=== PATIENT | male | born 1950 | race Caucasian/White ===

== ENCOUNTER 2018-03-06 10:40 | Emergency (ER) | payer MEDICARE, OTHER ==
[2018-03-06 11:12] VITALS: BP 118/65
[2018-03-06] MEDS: Albuterol/Ipratropium 3.0-0.5 MG/3 ML Neb Soln NEB ONE (11:14)
[2018-03-06 11:50] LABS: CHLORIDE,CL 92 mmol/L (98-115); SODIUM,NA 131 mmol/L (136-145)
--- NOTE | 2018-03-06 12:20 | EDM.PDOC ---
ED HPI GENERAL MEDICAL PROBLEM - General Chief Complaint: Respiratory Problem Stated Complaint: SHORTNESS OF BREATH Time Seen by Provider: 03/06/18 10:40 Source of Information: Reports: Patient, RN History Limitations: Reports: No Limitations - History of Present Illness INITIAL COMMENTS - FREE TEXT/NARRATIVE: 67-year-old patient will establish to the [facility] and clinic presents emergency room today with increased shortness of breath and weakness. He has a advanced COPD and history of alcoholic cirrhosis and anemia. He reports feeling increased weakness over the last 2 days. He has not done any nebulizer treatments. He reports that his air conditioner does not work well and he feels that this affects his breathing. He denies any nausea or vomiting or diarrhea. He denies any abdominal complaints. He feels his symptoms have gotten worse when he was out mowing the yard on the riding lawnmower 2 days ago. Onset: Gradual Onset Date: 03/03/18 Duration: Chronic, Getting Worse Location: Reports: Chest Quality: Reports: Same as Previous Episode Severity: Moderate Improves with: Reports: Rest Worsens with: Reports: Other (Outside in the heat and humidity), Movement Associated Symptoms: Reports: Shortness of Breath, Weakness. 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: Other Medication(s) - Related Data Allergies Allergy/AdvReac Type Severity Reaction Status Date / Time No Known Drug Allergies Allergy Cannot Verified 03/06/18 11:16 Remember Home Meds: Home Meds Pantoprazole Sodium 40 mg PO ACBREAKFAST 02/25/15 [History] Albuterol [Proair HFA] 1 - 2 puff INH Q4H PRN 02/26/15 [History] Fluticasone/Salmeterol [Advair Diskus 250-50] 1 puff INH BID 07/20/16 [History] Albuterol/Ipratropium [DuoNeb 3.0-0.5 MG/3 ML] 3 ml NEB QID PRN 09/05/16 [ History] Furosemide [Lasix] 60 mg PO DAILY 09/05/16 [History] Aspirin/Calcium Carbonate/Mag [Aspirin Buffered 325 mg Tab] 650 mg PO ASDIRECTED PRN 11/07/16 [History] Hydrocortisone [Proctozone-HC 2.5% Crm] 1 applic TOP ASDIRECTED PRN 11/08/16 [ History] Hydroxyurea [Hydrea] 1 tab PO BID 11/05/17 [History] Past Medical History HEENT History: Reports: Cataract, Impaired Vision Cardiovascular History: Reports: Hypertension, SOB on Exertion Respiratory History: Reports: COPD, SOB, Other (See Below) Other Respiratory History: emphysema Gastrointestinal History: Reports: Cirrhosis, Other (See Below) Other Gastrointestinal History: ascites, stomach ulcer- had a endoscopy in 2014 and there was no evidence of bleeding at that time Musculoskeletal History: Reports: Arthritis Neurological History: Reports: Headaches, Chronic Other Neuro History: etoh use Psychiatric History: Reports: Addiction, Other (See Below) Other Psychiatric History: alcohol and nicotine Endocrine/Metabolic History: Reports: Obesity/BMI 30+ Hematologic History: Reports: Anemia, Other (See Below) Other Hematologic History: thrombocytopenia, take 6 tabs of 325 mg aspirin daily Dermatologic History: Reports: Other (See Below) Other Dermatologic History: multiple scratched open area on chest, back and wesley arms - Infectious Disease History Infectious Disease History: Reports: Chicken Pox, Measles, Other (See Below) Other Infectious Disease History: non infectious hepatitis - Past Surgical History HEENT Surgical History: Reports: Cataract Surgery, Naso-Sinus Surgery GI Surgical History: Reports: Hernia, Abdominal, Hernia, Inguinal, Hernia Repair /Other Endocrine Surgical History: Reports: None Musculoskeletal Surgical History: Reports: Other (See Below) Social & Family History - Family History Family Medical History: Noncontributory Cardiac: Reports: Heart Failure - Caffeine Use Caffeine Use: Reports: Soda Other Caffeine Use: coke and powerade - Living Situation & Occupation Living situation: Reports: Single Occupation: Retired ED ROS GENERAL - Review of Systems Review Of Systems: See Below Constitutional: Reports: Fatigue. Denies: Fever, Chills HEENT: Reports: No Symptoms Respiratory: Reports: Shortness of Breath. Denies: Sputum, Hemoptysis Cardiovascular: Reports: Dyspnea on Exertion. Denies: Chest Pain, Orthopnea Endocrine: Reports: No Symptoms GI/Abdominal: Denies: Abdominal Pain, Vomiting : Reports: No Symptoms Musculoskeletal: Reports: No Symptoms Skin: Denies: Jaundice, Change in Color Neurological: Reports: Weakness Psychiatric: Reports: Depression Hematologic/Lymphatic: Reports: Anemia Immunologic: Reports: No Symptoms ED EXAM, GENERAL - Physical Exam Exam: See Below Exam Limited By: No Limitations General Appearance: Alert, WD/WN, No Apparent Distress Eye Exam: Bilateral Eye: EOMI, PERRL Ears: Hearing Grossly Normal Nose: Normal Inspection Throat/Mouth: Normal Oropharynx, Normal Voice, No Airway Compromise Head: Atraumatic, Normocephalic Neck: Normal Inspection, Supple Respiratory/Chest: No Respiratory Distress, Decreased Breath Sounds, Rhonchi, Wheezing. No: Accessory Muscle Use, Retractions Cardiovascular: Regular Rate, Rhythm GI/Abdominal: Non-Tender, Distended, Hepatomegaly Back Exam: Normal Inspection Extremities: Normal Inspection Neurological: Alert, Oriented, No Motor/Sensory Deficits Psychiatric: Normal Affect, Normal Mood Skin Exam: Warm, Dry, Intact, Normal Color, No Rash. No: Jaundice Lymphatic: No Adenopathy Course - Vital Signs Last Recorded V/S: Last Vital Signs Temp 98.9 F 03/06/18 11:05 Pulse 84 03/06/18 11:11 Resp 24 H 03/06/18 11:05 BP 118/65 03/06/18 11:05 Pulse Ox 93 L 03/06/18 11:11 - Orders/Labs/Meds Orders: Active Orders 24 hr Category Date Time Status RT Aerosol Therapy [RC] ASDIRECTED Care 03/06/18 11:11 Active CXR [Chest 2V] [CR] Stat Exams 03/06/18 11:10 Taken Labs: Laboratory Tests 03/06/18 03/06/18 Range/Units 10:20 10:20 WBC 7.4 (5.0-10.0) 10^3/uL RBC 2.27 L (4.50-6.00) 10^6/uL Hgb 6.6 L* (13.0-17.0) g/dL Hct 21.1 L (40.0-52.0) % MCV 92.9 H (82.0-92.0) fL MCH 29.1 (27.0-31.0) pg MCHC 31.3 L (32.0-36.0) g/dL RDW 21.4 H (11.5-14.5) % Plt Count 378 H D (150-300) 10^3/uL MPV 7.9 (7.4-10.4) fL Add Manual Diff Yes Neutrophils % (Manual) 90 H (50-70) % Lymphocytes % (Manual) 5 L (20-40) % Monocytes % (Manual) 5 (2-8) % Absolute Neutrophils 6.6600 Lymphocytes # (Manual) 0.3700 Monocytes # (Manual) 0.3700 Nucleated RBCs Patient Transport Orderly Differential Comment See note Platelet Estimate Adequate Giant Platelets Rare Poikilocytosis 1+ slight Anisocytosis 2+ moderate Macrocytosis 1+ slight Tear Drop Cells 1+ slight Elliptocytes 1+ slight Schistocytes Occasional Sodium 131 L (136-145) mmol/L Potassium 3.1 L (3.3-5.3) mmol/L Chloride 92 L (98-115) mmol/L Carbon Dioxide 31.0 (21.0-32.0) mmol/L BUN 12 (6-25) mg/dL Creatinine 1.00 (0.51-1.17) mg/dL Est Cr Clr Drug Dosing 69.72 mL/min Estimated GFR (MDRD) > 60 mL/min Glucose 112 H (70-110) mg/dL Calcium 8.0 L (8.7-10.3) mg/dL Meds: Medications Discontinued Medications Generic Name Dose Route Start Last Admin Trade Name Freq PRN Reason Stop Dose Admin Albuterol/Ipratropium 3 ml 03/06/18 11:10 03/06/18 11:14 Duoneb 3.0-0.5 Mg/3 Ml NEB 03/06/18 11:11 3 ml ONETIME ONE Administration Departure - Departure Time of Disposition: 12:40 Disposition: Home, Self-Care 01 Condition: Fair Clinical Impression: Acute exacerbation of chronic obstructive pulmonary disease (COPD), Alcoholic cirrhosis of liver with ascites, Anemia due to alcoholism - Discharge Information Instructions: Alcoholic Liver Disease, [id number], Chronic Obstructive Pulmonary Disease, Hemolytic Anemia Referrals: Fadia Rajan MD [Primary Care Provider] - Forms: ED Department Discharge - My Orders Last 24 Hours: My Active Orders 03/06/18 11:10 CXR [Chest 2V] [CR] Stat 03/06/18 11:11 RT Aerosol Therapy [RC] ASDIRECTED - Assessment/Plan Last 24 Hours: My Active Orders 03/06/18 11:10 CXR [Chest 2V] [CR] Stat 03/06/18 11:11 RT Aerosol Therapy [RC] ASDIRECTED Assessment:: Acute exacerbation of chronic COPD Alcoholic cirrhosis with history of ascites Anemia due to alcoholism Plan: 1. Continue with nebulizer treatments at home. 2. We'll plan on transfusing 1 unit of packed red blood cells for chronic anemia due to alcoholic liver cirrhosis. 3. Follow-up with Dr. Fadia Henson in 1 week. 4. Stay out of the heat and avoid any vigorous activities.
== END 2018-03-06 13:14 | disposition home or self-care (01) ==
LOC: KA.ED 10:40
DX: J44.1 Chronic obstructive pulmonary disease with (acute) exacerbation (principal); K70.31 Alcoholic cirrhosis of liver with ascites; F10.20 Alcohol dependence, uncomplicated; I10 Essential (primary) hypertension; D64.9 Anemia, unspecified; Z79.82 Long term (current) use of aspirin; Z79.899 Other long term (current) drug therapy
CPT/HCPCS: 36415; 71046; 80048; 85025; 99284; 99285

== ENCOUNTER 2018-03-19 17:01 | Emergency (ER) | payer MEDICARE, OTHER ==
[2018-03-19 17:13] VITALS: BP 101/36
--- NOTE | 2018-03-19 17:55 | EDM.PDOC ---
ED HPI GENERAL MEDICAL PROBLEM - General Chief Complaint: Respiratory Problem Stated Complaint: SHORT OF BREATH Time Seen by Provider: 03/19/18 17:06 Source of Information: Reports: Patient History Limitations: Reports: No Limitations - History of Present Illness INITIAL COMMENTS - FREE TEXT/NARRATIVE: Patient presents with dyspnea for the past 5 days along with worse cough than usual. He has been on home oxygen for the past 6 days but didn't think he needed to do his nebulizers now that he is on oxygen. He is supposed to use DuoNebs 2-4x/day. He was in the ER 13 days ago with dyspnea and anemia; and was given a transfusion while in ER. He lives alone and has been placed in NH in the past but then checks himself out. He is still smoking but doesn't light up with oxygen on he says. He hasn't been eating much the last few days but is drinking quite a bit of water and coca-cola. - Related Data Allergies Allergy/AdvReac Type Severity Reaction Status Date / Time No Known Drug Allergies Allergy Cannot Verified 03/19/18 17:13 Remember Home Meds: Home Meds Pantoprazole Sodium 40 mg PO ACBREAKFAST 02/25/15 [History] Albuterol [Proair HFA] 1 - 2 puff INH Q4H PRN 02/26/15 [History] Fluticasone/Salmeterol [Advair Diskus 250-50] 1 puff INH BID 07/20/16 [History] Albuterol/Ipratropium [DuoNeb 3.0-0.5 MG/3 ML] 3 ml NEB QID PRN 09/05/16 [ History] Furosemide [Lasix] 60 mg PO DAILY 09/05/16 [History] Aspirin/Calcium Carbonate/Mag [Aspirin Buffered 325 mg Tab] 650 mg PO ASDIRECTED PRN 11/07/16 [History] Hydrocortisone [Proctozone-HC 2.5% Crm] 1 applic TOP ASDIRECTED PRN 11/08/16 [ History] Hydroxyurea [Hydrea] 1 tab PO BID 11/05/17 [History] Hydrocortisone [Procto-Med Hc] 1 applic TOP ASDIRECTED 03/19/18 [History] Nystatin 1 applic TOP ASDIRECTED 03/19/18 [History] Past Medical History HEENT History: Reports: Cataract, Impaired Vision Cardiovascular History: Reports: Hypertension, SOB on Exertion Respiratory History: Reports: COPD, SOB, Other (See Below) Other Respiratory History: emphysema Gastrointestinal History: Reports: Cirrhosis, Other (See Below) Other Gastrointestinal History: ascites, stomach ulcer- had a endoscopy in 2014 and there was no evidence of bleeding at that time Musculoskeletal History: Reports: Arthritis Neurological History: Reports: Headaches, Chronic Other Neuro History: etoh use Psychiatric History: Reports: Addiction, Other (See Below) Other Psychiatric History: alcohol and nicotine Endocrine/Metabolic History: Reports: Obesity/BMI 30+ Hematologic History: Reports: Anemia, Other (See Below) Other Hematologic History: thrombocytopenia, take 6 tabs of 325 mg aspirin daily Dermatologic History: Reports: Other (See Below) Other Dermatologic History: multiple scratched open area on chest, back and wesley arms - Infectious Disease History Infectious Disease History: Reports: Chicken Pox, Measles, Other (See Below) Other Infectious Disease History: non infectious hepatitis - Past Surgical History HEENT Surgical History: Reports: Cataract Surgery, Naso-Sinus Surgery GI Surgical History: Reports: Hernia, Abdominal, Hernia, Inguinal, Hernia Repair /Other Endocrine Surgical History: Reports: None Musculoskeletal Surgical History: Reports: Other (See Below) Social & Family History - Family History Family Medical History: Noncontributory Cardiac: Reports: Heart Failure - Caffeine Use Caffeine Use: Reports: Soda Other Caffeine Use: coke and powerade - Living Situation & Occupation Living situation: Reports: Single Occupation: Retired ED ROS GENERAL - Review of Systems Review Of Systems: See Below Constitutional: Denies: Fever, Chills, Malaise HEENT: Denies: Throat Pain, Throat Swelling, Vision Change Respiratory: Reports: Shortness of Breath, Cough, Sputum. Denies: Wheezing Cardiovascular: Denies: Chest Pain, Lightheadedness, Syncope GI/Abdominal: Denies: Abdominal Pain, Diarrhea, Vomiting : Reports: No Symptoms Musculoskeletal: Reports: No Symptoms Skin: Reports: No Symptoms. Denies: Cyanosis, Jaundice, Mottled, Pallor, Diaphoresis Neurological: Denies: Seizure, Syncope, Trouble Speaking Psychiatric: Denies: Agitation Hematologic/Lymphatic: Reports: Anemia (last ER visit) ED EXAM, GENERAL - Physical Exam Exam: See Below Exam Limited By: No Limitations General Appearance: Alert, WD/WN, No Apparent Distress Eye Exam: Bilateral Eye: EOMI, Normal Inspection, PERRL Ears: Normal External Exam, Hearing Grossly Normal Nose: Normal Inspection, No Blood Throat/Mouth: Normal Inspection, Normal Lips, Normal Voice, No Airway Compromise Head: Atraumatic, Normocephalic Neck: Normal Inspection, Full Range of Motion Respiratory/Chest: No Accessory Muscle Use, Decreased Breath Sounds, Crackles, Wheezing (mild), Prolonged Expiration. No: Stridor Cardiovascular: Regular Rate, Rhythm, No Rub, Systolic Murmur (quiet) Extremities: Normal Inspection, Normal Range of Motion Neurological: Alert, Oriented, Normal Cognition, No Motor/Sensory Deficits Psychiatric: Normal Affect, Normal Mood Skin Exam: Warm, Dry, Intact, Normal Color, No Rash Course - Vital Signs Last Recorded V/S: Last Vital Signs Temp 95.7 F 03/19/18 17:10 Pulse 80 03/19/18 18:00 Resp 20 03/19/18 17:10 BP 101/36 L 03/19/18 17:10 Pulse Ox 91 L 03/19/18 18:00 - Orders/Labs/Meds Orders: Active Orders 24 hr Category Date Time Status RT Aerosol Therapy [RC] ASDIRECTED Care 03/19/18 18:00 Active CXR [Chest 2V] [CR] Stat Exams 03/19/18 17:49 Ordered CULTURE SPUTUM + SMEAR [RM] Stat Lab 03/19/18 17:30 Ordered RESPIRATORY CULT [MREF] Stat Lab 03/19/18 17:30 Received Labs: Laboratory Tests 03/19/18 03/19/18 Range/Units 18:00 18:00 WBC 10.3 H (5.0-10.0) 10^3/uL RBC 2.81 L (4.50-6.00) 10^6/uL Hgb 8.1 L D (13.0-17.0) g/dL Hct 26.6 L (40.0-52.0) % MCV 94.7 H (82.0-92.0) fL MCH 28.9 (27.0-31.0) pg MCHC 30.5 L (32.0-36.0) g/dL RDW 22.3 H (11.5-14.5) % Plt Count 953 H D (150-300) 10^3/uL MPV 7.5 (7.4-10.4) fL Neut % (Auto) 90.6 H (50.0-70.0) % Lymph % (Auto) 6.9 L (20.0-40.0) % [place] % (Auto) 2.0 (2.0-8.0) % Eos % (Auto) 0.5 L (1.0-3.0) % Baso % (Auto) 0.0 (0.0-1.0) % Neut # (Auto) 9.3 H (2.5-7.0) 10^3/uL Lymph # (Auto) 0.7 L (1.0-4.0) 10^3/uL [place] # (Auto) 0.2 (0.1-0.8) 10^3/uL Eos # (Auto) 0.1 (0.1-0.3) 10^3/uL Baso # (Auto) 0.0 (0.0-0.1) 10^3/uL Sodium 134 L (136-145) mmol/L Potassium 3.8 (3.3-5.3) mmol/L Chloride 92 L (98-115) mmol/L Carbon Dioxide 35.3 H (21.0-32.0) mmol/L BUN 37 H D (6-25) mg/dL Creatinine 1.24 H (0.51-1.17) mg/dL Est Cr Clr Drug Dosing 56.22 mL/min Estimated GFR (MDRD) 58 mL/min Glucose 100 (70-110) mg/dL Calcium 8.6 L (8.7-10.3) mg/dL Meds: Medications Discontinued Medications Generic Name Dose Route Start Last Admin Trade Name Freq PRN Reason Stop Dose Admin Albuterol/Ipratropium Confirm 03/19/18 17:47 03/19/18 18:00 Duoneb 3.0-0.5 Mg/3 Ml Administered 03/19/18 17:48 Not Given Dose 3 ml .ROUTE .STK-MED ONE Albuterol/Ipratropium 3 ml 03/19/18 18:00 03/19/18 18:00 Duoneb 3.0-0.5 Mg/3 Ml NEB 03/19/18 18:01 3 ml ONETIME ONE Administration - Re-Assessments/Exams Free Text/Narrative Re-Assessment/Exam: 03/19/18 18:54 WBC 10.3, CXR shows right lung base small effusion and/or infiltrate. BUN and Creatinine are elevated again. Breathing improved a little after the DuoNeb with sats 96% on 3 liters via cannula. 03/19/18 20:[address] Chavez who agrees with plan of going home on Zithromax and reminder to use his inhalers and nebulizers at home. Discussed findings and treatment plan with patient and he is agreeable with it and will use the nebs and inhalers. Stable through ER course. Departure - Departure Time of Disposition: 20:17 Disposition: Home, Self-Care 01 Condition: Good Clinical Impression: COPD exacerbation Pneumonia Qualifiers: Pneumonia type: due to unspecified organism Laterality: right Lung location: middle lobe of lung Qualified Code(s): J18.9 - Pneumonia, unspecified organism - Discharge Information Referrals: Fadia Rajan MD [Primary Care Provider] - Forms: ED Department Discharge Additional Instructions: 1. Take the antibiotic as directed for 5 days starting tomorrow. 2. Continue your nebulizer 2-4 times a day and your inhalers as directed. 3. Use your oxygen as directed. 4. Follow up with DR. Chavez as needed. - My Orders Last 24 Hours: My Active Orders 03/19/18 17:30 CULTURE SPUTUM + SMEAR [RM] Stat RESPIRATORY CULT [MREF] Stat 03/19/18 17:49 CXR [Chest 2V] [CR] Stat 03/19/18 18:00 RT Aerosol Therapy [RC] ASDIRECTED - Assessment/Plan Last 24 Hours: My Active Orders 03/19/18 17:30 CULTURE SPUTUM + SMEAR [RM] Stat RESPIRATORY CULT [MREF] Stat 03/19/18 17:49 CXR [Chest 2V] [CR] Stat 03/19/18 18:00 RT Aerosol Therapy [RC] ASDIRECTED
[2018-03-19] MEDS: Albuterol/Ipratropium 3.0-0.5 MG/3 ML Neb Soln ONE ×2 (17:59→18:00)
[2018-03-19] MEDS ORDERED: Albuterol/Ipratropium 3.0-0.5 MG/3 ML Neb Soln NEB ONE (18:00)
[2018-03-19] MEDS ORDERED: Azithromycin 250 MG Tab PO ONE (20:14)
== END 2018-03-19 20:55 | disposition home or self-care (01) ==
LOC: KA.ED 17:01
DX: J44.1 Chronic obstructive pulmonary disease with (acute) exacerbation (principal); J18.9 Pneumonia, unspecified organism; I10 Essential (primary) hypertension; Z79.899 Other long term (current) drug therapy; Z79.82 Long term (current) use of aspirin
CPT/HCPCS: 36415; 71046; 80048; 85025; 87070; 87205; 94640; 99284; 99285; A9270

== ENCOUNTER 2018-03-20 12:15 | Inpatient (IN) | payer MEDICARE, OTHER ==
[2018-03-20] MEDS ORDERED: Sodium Chloride 0.9% 5 ML Syringe FLUSH PRN ×2 (12:44→13:49)
--- NOTE | 2018-03-20 12:46 | EDM.PDOC ---
ED HPI GENERAL MEDICAL PROBLEM - General Chief Complaint: General Stated Complaint: SHORTNESS OF BERATH Time Seen by Provider: 03/20/18 12:30 Source of Information: Reports: Patient, EMS, Old Records - History of Present Illness INITIAL COMMENTS - FREE TEXT/NARRATIVE: 67 YO WM presents to ER by EMS with worsening shortness of breath and confusion. Pt was seen in ER yesterday for increased shortness of breath x 5 days. Pt was diagnosed with RLL pneumonia and sent home on zithromax. Pt called the clinic this am for follow up and nurse recognized pt seemed confused prompting EMS evaluation. Pt had SaO2 in 80s upon ER arrival. Pt uses home O2 and has been noncompliant with his nebulizer treatments. Pt currently denies any pain and is able to respond appropriately to commands and alert to self but is confused to place and time. Pt denies chest pain, no fever/chills, pt states he can't remember when he had his last drink of alcohol. Onset Date: 03/15/18 Duration: Chronic Severity: Moderate Improves with: Reports: None Worsens with: Reports: None Treatments PRODUCE SPECIALIST: Reports: Breathing Treatments, Oxygen, Other (see below) Other Treatments PRODUCE SPECIALIST: Neb, IV placement - Related Data Allergies Allergy/AdvReac Type Severity Reaction Status Date / Time No Known Drug Allergies Allergy Cannot Verified 03/20/18 12:44 Remember Home Meds: Home Meds RX: Pantoprazole Sodium 40 mg PO ACBREAKFAST 02/25/15 [History] RX: Albuterol [Proair HFA] 1 - 2 puff INH Q4H PRN 02/26/15 [History] RX: Fluticasone/Salmeterol [Advair Diskus 250-50] 1 puff INH BID 07/20/16 [ History] RX: Albuterol/Ipratropium [DuoNeb 3.0-0.5 MG/3 ML] 3 ml NEB QID PRN 09/05/16 [ History] RX: Furosemide [Lasix] 60 mg PO DAILY 09/05/16 [History] Aspirin/Calcium Carbonate/Mag [Aspirin Buffered 325 mg Tab] 650 mg PO ASDIRECTED PRN 11/07/16 [History] Hydrocortisone [Proctozone-HC 2.5% Crm] 1 applic TOP ASDIRECTED PRN 11/08/16 [ History] RX: Hydroxyurea [Hydrea] 1 tab PO BID 11/05/17 [History] Nystatin 10 ml SSPIT ASDIRECTED 03/19/18 [History] Past Medical History HEENT History: Reports: Cataract, Impaired Vision Cardiovascular History: Reports: Hypertension, SOB on Exertion Respiratory History: Reports: COPD, SOB, Other (See Below) Other Respiratory History: emphysema Gastrointestinal History: Reports: Cirrhosis, Other (See Below) Other Gastrointestinal History: ascites, stomach ulcer- had a endoscopy in 2014 and there was no evidence of bleeding at that time Musculoskeletal History: Reports: Arthritis Neurological History: Reports: Headaches, Chronic Other Neuro History: etoh use Psychiatric History: Reports: Addiction, Other (See Below) Other Psychiatric History: alcohol and nicotine Endocrine/Metabolic History: Reports: Obesity/BMI 30+ Hematologic History: Reports: Anemia, Other (See Below) Other Hematologic History: thrombocytopenia, take 6 tabs of 325 mg aspirin daily Dermatologic History: Reports: Other (See Below) Other Dermatologic History: multiple scratched open area on chest, back and wesley arms - Infectious Disease History Infectious Disease History: Reports: Chicken Pox, Measles, Other (See Below) Other Infectious Disease History: non infectious hepatitis - Past Surgical History HEENT Surgical History: Reports: Cataract Surgery, Naso-Sinus Surgery GI Surgical History: Reports: Hernia, Abdominal, Hernia, Inguinal, Hernia Repair /Other Endocrine Surgical History: Reports: None Musculoskeletal Surgical History: Reports: Other (See Below) Social & Family History - Family History Family Medical History: Noncontributory Cardiac: Reports: Heart Failure - Caffeine Use Caffeine Use: Reports: Soda Other Caffeine Use: coke and powerade - Living Situation & Occupation Living situation: Reports: Single Occupation: Retired ED ROS GENERAL - Review of Systems Review Of Systems: See Below Constitutional: Reports: Malaise, Weakness, Fatigue. Denies: Fever, Chills HEENT: Reports: No Symptoms Respiratory: Reports: Shortness of Breath, Wheezing, Sputum. Denies: Hemoptysis Cardiovascular: Reports: No Symptoms Endocrine: Reports: No Symptoms GI/Abdominal: Reports: No Symptoms : Reports: No Symptoms Musculoskeletal: Reports: No Symptoms Skin: Reports: No Symptoms Neurological: Reports: Confusion Psychiatric: Reports: No Symptoms Hematologic/Lymphatic: Reports: No Symptoms Immunologic: Reports: No Symptoms ED EXAM, GENERAL - Physical Exam Exam: See Below Exam Limited By: No Limitations General Appearance: Alert, WD/WN, No Apparent Distress Nose: Normal Inspection, Normal Mucosa, No Blood Throat/Mouth: Normal Inspection, Normal Lips, Normal Teeth, Normal Gums, Normal Oropharynx, Normal Voice, No Airway Compromise Head: Atraumatic, Normocephalic Neck: Normal Inspection, Supple, Non-Tender, Full Range of Motion Respiratory/Chest: No Respiratory Distress, No Accessory Muscle Use, Chest Non- Tender, Wheezing. No: Lungs Clear, Normal Breath Sounds Cardiovascular: Normal Peripheral Pulses, Regular Rate, Rhythm, No Edema, No Gallop, No JVD, No Murmur, No Rub GI/Abdominal: Normal Bowel Sounds, Soft, Non-Tender, No Organomegaly, No Distention, No Abnormal Bruit, No Mass Back Exam: Normal Inspection, Full Range of Motion, NT Extremities: Normal Inspection, Normal Range of Motion, Non-Tender, Normal Capillary Refill, No Pedal Edema Neurological: Alert, CN II-XII Intact, Normal Cognition, Normal Gait, Normal Reflexes, No Motor/Sensory Deficits Psychiatric: Normal Affect, Normal Mood Skin Exam: Warm, Dry, Intact, Normal Color, No Rash Lymphatic: No Adenopathy EKG INTERPRETATION EKG Date: 03/20/18 Time: 12:56 Rhythm: NSR Rate (Beats/Min): 83 [place]: Normal P-Wave: Present QRS: Normal ST-T: Normal QT: Normal Course - Vital Signs Last Recorded V/S: Last Vital Signs Temp 36.2 C 03/20/18 12:15 Pulse 80 03/20/18 13:28 Resp 14 03/20/18 12:15 BP 112/47 L 03/20/18 12:15 Pulse Ox 92 L 03/20/18 13:28 - Orders/Labs/Meds Orders: Active Orders 24 hr Category Date Time Status Patient Status Manage Transfer [TRANSFER] Routine ADT 03/20/18 13:48 Ordered Patient Status [ADT] Routine ADT 03/20/18 13:49 Ordered Bedrest Bathroom Privileges [RC] ASDIRECTED Care 03/20/18 13:49 Active Cardiac Monitoring [RC] CONTINUOUS Care 03/20/18 13:50 Active EKG Documentation Completion [RC] ASDIRECTED Care 03/20/18 12:45 Active Oxygen Therapy [RC] PRN Care 03/20/18 13:49 Active Peripheral IV Care [RC] . DIRECTED Care 03/20/18 12:45 Active Peripheral IV Care [RC] . DIRECTED Care 03/20/18 13:51 Active Pulse Oximetry [RC] CONTINUOUS Care 03/20/18 13:50 Active RT Aerosol Therapy [RC] ASDIRECTED Care 03/20/18 12:58 Active RT Aerosol Therapy [RC] ASDIRECTED Care 03/20/18 13:51 Active VTE/DVT Education [RC] PER UNIT ROUTINE Care 03/20/18 13:49 Active Vital Signs [RC] Q4H Care 03/20/18 13:49 Active 2 Gram Sodium Diet [DIET] Diet 03/20/18 Dinner Active Chest 1V Frontal [CR] Stat Exams 03/20/18 12:44 Taken CBC WITH AUTO DIFF [HEME] AM Lab 03/21/18 05:11 Ordered COMPREHENSIVE METABOLIC PN,CMP [CHEM] AM Lab 03/21/18 05:11 Ordered CULTURE BLOOD [BC] Stat Lab 03/20/18 13:52 Ordered CULTURE BLOOD [BC] Stat Lab 03/20/18 13:52 Ordered MAGNESIUM [CHEM] AM Lab 03/21/18 05:11 Ordered Albuterol/Ipratropium [DuoNeb 3.0-0.5 MG/3 ML] Med 03/20/18 14:00 Active 3 ml NEB Q4H Azithromycin [Zithromax] 500 mg Med 03/20/18 14:00 Active Sodium Chloride 0.9% [Normal Saline] 250 ml IV Q24H Sodium Chloride 0.9% [Normal Saline] 1,000 ml Med 03/20/18 12:57 Active IV .BOLUS Sodium Chloride 0.9% [Syrex Flush] Med 03/20/18 12:44 Active 5 ml FLUSH Q8HR PRN Sodium Chloride 0.9% [Syrex Flush] Med 03/20/18 13:49 Active 5 ml FLUSH Q8HR PRN cefTRIAXone [Rocephin] Med 03/20/18 14:00 Active 1 gm IVPUSH Q24H Blood Culture x2 Reflex Set [OM.PC] Stat Oth 03/20/18 13:49 Ordered Peripheral IV Insertion Adult [OM.PC] Routine Oth 03/20/18 12:44 Ordered Peripheral IV Insertion Adult [OM.PC] Routine Oth 03/20/18 13:49 Ordered Resuscitation Status Routine Resus Stat 03/20/18 13:49 Ordered EKG 12 Lead [EK] Routine Ther 03/20/18 12:44 Ordered Medication Orders Albuterol/Ipratropium (Duoneb 3.0-0.5 Mg/3 Ml) 3 ml NEB Q4H VAL Ceftriaxone Sodium (Rocephin) 1 gm IVPUSH Q24H VAL Sodium Chloride (Normal Saline) 1,000 mls @ 999 mls/hr IV .BOLUS ONE Stop: 03/20/18 13:57 Last Admin: 03/20/18 13:23 Dose: 999 mls/hr Azithromycin 500 mg/ Sodium (Chloride) 250 mls @ 250 mls/hr IV Q24H VAL Sodium Chloride (Syrex Flush) 5 ml FLUSH Q8HR PRN PRN Reason: Keep Vein Open Sodium Chloride (Syrex Flush) 5 ml FLUSH Q8HR PRN PRN Reason: Keep Vein Open Labs: Laboratory Tests 03/20/18 03/20/18 03/20/18 Range/Units 13:00 13:00 13:00 WBC 10.7 H (5.0-10.0) 10^3/uL Corrected WBC 10.1 H (5.0-10.0) K/uL RBC 2.88 L (4.50-6.00) 10^6/uL Hgb 8.4 L (13.0-17.0) g/dL Hct 27.3 L (40.0-52.0) % MCV 94.9 H (82.0-92.0) fL MCH 29.1 (27.0-31.0) pg MCHC 30.6 L (32.0-36.0) g/dL RDW 21.6 H (11.5-14.5) % Plt Count 871 H D (150-300) 10^3/uL MPV 8.4 (7.4-10.4) fL Add Manual Diff Yes Neutrophils % (Manual) 91 H (50-70) % Lymphocytes % (Manual) 4 L (20-40) % Monocytes % (Manual) 1 L (2-8) % Eosinophils % (Manual) 4 H (1-3) % Absolute Neutrophils 9.7370 Lymphocytes # (Manual) 0.4280 Monocytes # (Manual) 0.1070 Eosinophils # (Manual) 0.4280 Nucleated RBCs 6 Platelet Estimate Increased Polychromasia Occasional Poikilocytosis 1+ slight Anisocytosis 2+ moderate Microcytosis 1+ slight Macrocytosis 1+ slight Tear Drop Cells Occasional Ovalocytes 1+ slight Stomatocytes 1+ slight Schistocytes 1+ slight PT 12.1 H (8.9-11.4) SEC INR 1.2 H (0.9-1.1) APTT 29.2 (20.8-31.2) SEC Sodium 135 L (136-145) mmol/L Potassium 3.0 L (3.3-5.3) mmol/L Chloride 91 L (98-115) mmol/L Carbon Dioxide 36.9 H (21.0-32.0) mmol/L BUN 32 H (6-25) mg/dL Creatinine 1.25 H (0.51-1.17) mg/dL Est Cr Clr Drug Dosing 53.96 mL/min Estimated GFR (MDRD) 57 mL/min Glucose 109 (70-110) mg/dL Calcium 8.7 (8.7-10.3) mg/dL Total Bilirubin 0.7 (0.2-1.0) mg/dL AST 27 (15-37) U/L ALT 27 (12-78) U/L Alkaline Phosphatase 213 H (46-116) IU/L Ammonia (11-32) umol/L Creatine Kinase 79 (26-276) U/L CK-MB (CK-2) 3.20 (0.00-4.30) ng/mL Troponin I < 0.04 (0.00-0.070) ng/mL B-Natriuretic Peptide 1630 H (0-100) pg/mL Total Protein 6.8 (6.4-8.2) g/dL Albumin 2.93 L (3.00-4.80) g/dL Ethyl Alcohol (0-3) mg/dL 03/20/18 03/20/18 Range/Units 13:00 13:00 WBC (5.0-10.0) 10^3/uL Corrected WBC (5.0-10.0) K/uL RBC (4.50-6.00) 10^6/uL Hgb (13.0-17.0) g/dL Hct (40.0-52.0) % MCV (82.0-92.0) fL MCH (27.0-31.0) pg MCHC (32.0-36.0) g/dL RDW (11.5-14.5) % Plt Count (150-300) 10^3/uL MPV (7.4-10.4) fL Add Manual Diff Neutrophils % (Manual) (50-70) % Lymphocytes % (Manual) (20-40) % Monocytes % (Manual) (2-8) % Eosinophils % (Manual) (1-3) % Absolute Neutrophils Lymphocytes # (Manual) Monocytes # (Manual) Eosinophils # (Manual) Nucleated RBCs Platelet Estimate Polychromasia Poikilocytosis Anisocytosis Microcytosis Macrocytosis Tear Drop Cells Ovalocytes Stomatocytes Schistocytes PT (8.9-11.4) SEC INR (0.9-1.1) APTT (20.8-31.2) SEC Sodium (136-145) mmol/L Potassium (3.3-5.3) mmol/L Chloride (98-115) mmol/L Carbon Dioxide (21.0-32.0) mmol/L BUN (6-25) mg/dL Creatinine (0.51-1.17) mg/dL Est Cr Clr Drug Dosing mL/min Estimated GFR (MDRD) mL/min Glucose (70-110) mg/dL Calcium (8.7-10.3) mg/dL Total Bilirubin (0.2-1.0) mg/dL AST (15-37) U/L ALT (12-78) U/L Alkaline Phosphatase (46-116) IU/L Ammonia 15 (11-32) umol/L Creatine Kinase (26-276) U/L CK-MB (CK-2) (0.00-4.30) ng/mL Troponin I (0.00-0.070) ng/mL B-Natriuretic Peptide (0-100) pg/mL Total Protein (6.4-8.2) g/dL Albumin (3.00-4.80) g/dL Ethyl Alcohol < 3 (0-3) mg/dL Meds: Medications Generic Name Dose Route Start Last Admin Trade Name Freq PRN Reason Stop Dose Admin Albuterol/Ipratropium 3 ml 03/20/18 14:00 Duoneb 3.0-0.5 Mg/3 Ml NEB Q4H VAL Ceftriaxone Sodium 1 gm 03/20/18 14:00 Rocephin IVPUSH Q24H VAL Sodium Chloride 1,000 mls @ 999 mls/hr 03/20/18 12:57 03/20/18 13:23 Normal Saline IV 03/20/18 13:57 999 mls/hr .BOLUS ONE Administration Azithromycin 500 mg/ Sodium 250 mls @ 250 mls/hr 03/20/18 14:00 Chloride IV Q24H VAL Sodium Chloride 5 ml 03/20/18 12:44 Syrex Flush FLUSH Q8HR PRN Keep Vein Open Sodium Chloride 5 ml 03/20/18 13:49 Syrex Flush FLUSH Q8HR PRN Keep Vein Open Discontinued Medications Generic Name Dose Route Start Last Admin Trade Name Freq PRN Reason Stop Dose Admin Albuterol/Ipratropium 3 ml 03/20/18 12:57 03/20/18 13:22 Duoneb 3.0-0.5 Mg/3 Ml NEB 03/20/18 12:58 3 ml ONETIME ONE Administration - Radiology Interpretation Free Text/Narrative:: CXR- RLL atelectesis vs infiltrate; small right pleural effusion Departure - Departure Time of Disposition: 13:47 Disposition: Admitted As Inpatient 64 Condition: Poor Clinical Impression: CHF, Congestive heart failure, Pneumonia, Hypokalemia, Alcohol abuse - Discharge Information Referrals: Fadia Rajan MD [Primary Care Provider] - Forms: ED Department Discharge - My Orders Last 24 Hours: My Active Orders 03/20/18 12:44 Chest 1V Frontal [CR] Stat Sodium Chloride 0.9% [Syrex Flush] 5 ml FLUSH Q8HR PRN Peripheral IV Insertion Adult [OM.PC] Routine EKG 12 Lead [EK] Routine 03/20/18 12:45 EKG Documentation Completion [RC] ASDIRECTED Peripheral IV Care [RC] . DIRECTED 03/20/18 12:57 Sodium Chloride 0.9% [Normal Saline] 1,000 ml IV .BOLUS 03/20/18 12:58 RT Aerosol Therapy [RC] ASDIRECTED 03/20/18 13:48 Patient Status Manage Transfer [TRANSFER] Routine 03/20/18 13:49 Patient Status [ADT] Routine Bedrest Bathroom Privileges [RC] ASDIRECTED Oxygen Therapy [RC] PRN VTE/DVT Education [RC] PER UNIT ROUTINE Vital Signs [RC] Q4H Sodium Chloride 0.9% [Syrex Flush] 5 ml FLUSH Q8HR PRN Blood Culture x2 Reflex Set [OM.PC] Stat Peripheral IV Insertion Adult [OM.PC] Routine Resuscitation Status Routine 03/20/18 13:50 Cardiac Monitoring [RC] CONTINUOUS Pulse Oximetry [RC] CONTINUOUS 03/20/18 13:51 Peripheral IV Care [RC] . DIRECTED RT Aerosol Therapy [RC] ASDIRECTED 03/20/18 13:52 CULTURE BLOOD [BC] Stat CULTURE BLOOD [BC] Stat 03/20/18 14:00 Albuterol/Ipratropium [DuoNeb 3.0-0.5 MG/3 ML] 3 ml NEB Q4H Azithromycin [Zithromax] 500 mg Sodium Chloride 0.9% [Normal Saline] 250 ml IV Q24H cefTRIAXone [Rocephin] 1 gm IVPUSH Q24H 03/20/18 Dinner 2 Gram Sodium Diet [DIET] 03/21/18 05:11 CBC WITH AUTO DIFF [HEME] AM COMPREHENSIVE METABOLIC PN,CMP [CHEM] AM MAGNESIUM [CHEM] AM - Assessment/Plan Last 24 Hours: My Active Orders 03/20/18 12:44 Chest 1V Frontal [CR] Stat Sodium Chloride 0.9% [Syrex Flush] 5 ml FLUSH Q8HR PRN Peripheral IV Insertion Adult [OM.PC] Routine EKG 12 Lead [EK] Routine 03/20/18 12:45 EKG Documentation Completion [RC] ASDIRECTED Peripheral IV Care [RC] . DIRECTED 03/20/18 12:57 Sodium Chloride 0.9% [Normal Saline] 1,000 ml IV .BOLUS 03/20/18 12:58 RT Aerosol Therapy [RC] ASDIRECTED 03/20/18 13:48 Patient Status Manage Transfer [TRANSFER] Routine 03/20/18 13:49 Patient Status [ADT] Routine Bedrest Bathroom Privileges [RC] ASDIRECTED Oxygen Therapy [RC] PRN VTE/DVT Education [RC] PER UNIT ROUTINE Vital Signs [RC] Q4H Sodium Chloride 0.9% [Syrex Flush] 5 ml FLUSH Q8HR PRN Blood Culture x2 Reflex Set [OM.PC] Stat Peripheral IV Insertion Adult [OM.PC] Routine Resuscitation Status Routine 03/20/18 13:50 Cardiac Monitoring [RC] CONTINUOUS Pulse Oximetry [RC] CONTINUOUS 03/20/18 13:51 Peripheral IV Care [RC] . DIRECTED RT Aerosol Therapy [RC] ASDIRECTED 03/20/18 13:52 CULTURE BLOOD [BC] Stat CULTURE BLOOD [BC] Stat 03/20/18 14:00 Albuterol/Ipratropium [DuoNeb 3.0-0.5 MG/3 ML] 3 ml NEB Q4H Azithromycin [Zithromax] 500 mg Sodium Chloride 0.9% [Normal Saline] 250 ml IV Q24H cefTRIAXone [Rocephin] 1 gm IVPUSH Q24H 03/20/18 Dinner 2 Gram Sodium Diet [DIET] 03/21/18 05:11 CBC WITH AUTO DIFF [HEME] AM COMPREHENSIVE METABOLIC PN,CMP [CHEM] AM MAGNESIUM [CHEM] AM Assessment:: 1. RLL pneumonia 2. Hypoxia 3. hypokalemia 4. mild CHF 5. Alcohol use/abuse with mild confusion Plan: 1. rocephin/zithromax 2. banana bag 3. oxygen/supportive care 4. potassium 40meq 5. full code 6. admit to Dr Fadia Henson
[2018-03-20] MEDS ORDERED: Sodium Chloride 0.9% 1,000 ML IV ONE (12:57)
[2018-03-20] MEDS ORDERED: Albuterol/Ipratropium 3.0-0.5 MG/3 ML Neb Soln NEB ONE (12:57)
[2018-03-20 13:38] LABS: CHLORIDE,CL 91 mmol/L (98-115); SODIUM,NA 135 mmol/L (136-145)
[2018-03-20] MEDS ORDERED: Azithromycin 500 MG in Sodium Chloride 0.9% 250 ML IV SCH (14:00)
[2018-03-20] MEDS ORDERED: Folic Acid 1 MG Tab PO ONE (14:15)
[2018-03-20] MEDS ORDERED: MVI IV ONE ×4 (14:15)
[2018-03-20] MEDS ORDERED: THIAMINE IV ONE ×4 (14:15)
[2018-03-20] MEDS ORDERED: [UNRECOGNIZED DRUG - OTHER] IV ONE ×4 (14:15)
[2018-03-20] MEDS ORDERED: MAGNESIUM SULFATE IV ONE ×4 (14:15)
[2018-03-20] MEDS ORDERED: VITAMIN K IV ONE ×4 (14:15)
[2018-03-20] MEDS ORDERED: Atropine 0.1 MG/ML 10 ML Syringe IVPUSH PRN (14:39)
[2018-03-20] MEDS ORDERED: EPINEPHrine 1:10,000 1 MG/10 ML Syringe IVPUSH PRN (14:39)
[2018-03-20] MEDS ORDERED: Lidocaine 2% 100 MG/5 ML Syringe IVPUSH PRN (14:39)
[2018-03-20] MEDS ORDERED: Nitroglycerin 0.4 MG Tab.SL SL PRN (14:39)
[2018-03-20] MEDS: Albuterol/Ipratropium 3.0-0.5 MG/3 ML Neb Soln NEB SCH ×3 (15:53→21:54)
[2018-03-20] MEDS: Potassium Chloride 20 MEQ Tab.ER PO ONE ×2 (15:53→18:28)
[2018-03-20] MEDS: Folic Acid 1 MG Tab PO SCH (15:53)
[2018-03-20] MEDS: cefTRIAXone 1 GM Vial IVPUSH SCH (15:53)
[2018-03-20] MEDS: methylPREDNISolone Sodium Succinate 125 MG/2 ML SDV IVPUSH SCH ×2 (15:54→21:59)
[2018-03-20] MEDS: Azithromycin 500 MG in Sodium Chloride 0.9% 250 ML IV SCH (16:05)
[2018-03-20] MEDS ORDERED: Ondansetron 4 MG Tab.DIS PO PRN (16:31)
[2018-03-20] MEDS ORDERED: Potassium Chloride 100 ML IV ONE ×2 (16:45→18:45)
[2018-03-21] MEDS: Albuterol/Ipratropium 3.0-0.5 MG/3 ML Neb Soln NEB SCH ×6 (01:58→21:26)
[2018-03-21] MEDS: methylPREDNISolone Sodium Succinate 125 MG/2 ML SDV IVPUSH SCH ×3 (05:49→21:25)
[2018-03-21] MEDS ORDERED: Sodium Chloride 0.9% 5 ML Syringe FLUSH PRN (05:50)
[2018-03-21 07:55] LABS: CHLORIDE,CL 95 mmol/L (98-115); SODIUM,NA 136 mmol/L (136-145)
[2018-03-21] MEDS ORDERED: Albuterol HFA 18 Gm Inhaler INH PRN (08:29)
[2018-03-21] MEDS ORDERED: Hydrocortisone 2.5% Crm 30 GM Tube TOP PRN (08:29)
[2018-03-21] MEDS ORDERED: Albuterol/Ipratropium 3.0-0.5 MG/3 ML Neb Soln INH PRN (08:29)
[2018-03-21] MEDS ORDERED: Albuterol 8 GM Inhaler INH PRN (08:33)
--- NOTE | 2018-03-21 09:00 | PCM.PN ---
- General Info Date of Service: 03/21/18 Admission Dx/Problem (Free Text): Probably RLL pneumonia, elevated BNP, COPD exacerbation. - Review of Systems Systems Review Comment:: Justino is seen today on inpatient rounds. He was admitted yesterday with probably RLL pneumonia, confusion, elevated BNP without a known diagnosis of heart failure as well as COPD exacerbation. He recently got home oxygen and did not think he needed to take his inhalers and nebulizers. He was seen in the ER on 03/19/18 and was restarted on his nebs and inhalers and also started on azithromycin for probably pneumonia. I had my nurse call him at home to come in for repeat labs at the end of the week as his BUN/Cr were up slightly and his platelets had risen significantly. He was very confused on the phone and sounded very SOB and so it was recommended he present to the ER, which he did by private vehicle. He was started on rocephin and azithromycin as well as solumedrol 80 mg IV q 8 hours. He is very confused today. He is going on and on about his " who I'm to can't get on the [employer] call list". He states "it's administrations fault". He is not able to tell me which call list he is referring to. He denies any pain. He states he remembers who I am "but I haven't seen you in years" when I actually saw him on March 10, 2018. He denies any pain. He can't tell me if his breathing feels better or not. When I asked him if he was taking his hydroxyurea at home for his thrombocythemia he states "I haven't been taking anything, I can't find my meds. I need help". When I ask him what kind of help he needs he goes back to getting his 's name on a call list. His EtOH and ammonia levels were normal yesterday. - Patient Data Vitals - Most Recent: Last Vital Signs Temp 98.3 F 03/21/18 06:00 Pulse 81 03/21/18 06:00 Resp 20 03/21/18 06:00 BP 106/44 L 03/21/18 06:00 Pulse Ox 97 03/21/18 06:00 Weight - Most Recent: 171 lb I&O - Last 24 Hours: Intake & Output 03/20/18 03/21/18 03/21/18 22:59 06:59 14:59 Intake Total 1263 Balance 1263 Lab Results Last 24 Hours: Laboratory Results - last 24 hr 03/20/18 03/20/18 03/20/18 Range/Units 13:00 13:00 13:00 WBC 10.7 H (5.0-10.0) 10^3/uL Corrected WBC 10.1 H (5.0-10.0) K/uL RBC 2.88 L (4.50-6.00) 10^6/uL Hgb 8.4 L (13.0-17.0) g/dL Hct 27.3 L (40.0-52.0) % MCV 94.9 H (82.0-92.0) fL MCH 29.1 (27.0-31.0) pg MCHC 30.6 L (32.0-36.0) g/dL RDW 21.6 H (11.5-14.5) % Plt Count 871 H D (150-300) 10^3/uL MPV 8.4 (7.4-10.4) fL Neut % (Auto) (50.0-70.0) % Lymph % (Auto) (20.0-40.0) % [place] % (Auto) (2.0-8.0) % Eos % (Auto) (1.0-3.0) % Baso % (Auto) (0.0-1.0) % Neut # (Auto) (2.5-7.0) 10^3/uL Lymph # (Auto) (1.0-4.0) 10^3/uL [place] # (Auto) (0.1-0.8) 10^3/uL Eos # (Auto) (0.1-0.3) 10^3/uL Baso # (Auto) (0.0-0.1) 10^3/uL Add Manual Diff Yes Neutrophils % (Manual) 91 H (50-70) % Lymphocytes % (Manual) 4 L (20-40) % Monocytes % (Manual) 1 L (2-8) % Eosinophils % (Manual) 4 H (1-3) % Absolute Neutrophils 9.7370 Lymphocytes # (Manual) 0.4280 Monocytes # (Manual) 0.1070 Eosinophils # (Manual) 0.4280 Nucleated RBCs 6 Platelet Estimate Increased Polychromasia Occasional Poikilocytosis 1+ slight Anisocytosis 2+ moderate Microcytosis 1+ slight Macrocytosis 1+ slight Tear Drop Cells Occasional Ovalocytes 1+ slight Stomatocytes 1+ slight Schistocytes 1+ slight PT 12.1 H (8.9-11.4) SEC INR 1.2 H (0.9-1.1) APTT 29.2 (20.8-31.2) SEC Sodium 135 L (136-145) mmol/L Potassium 3.0 L (3.3-5.3) mmol/L Chloride 91 L (98-115) mmol/L Carbon Dioxide 36.9 H (21.0-32.0) mmol/L BUN 32 H (6-25) mg/dL Creatinine 1.25 H (0.51-1.17) mg/dL Est Cr Clr Drug Dosing 53.96 mL/min Estimated GFR (MDRD) 57 mL/min Glucose 109 (70-110) mg/dL Calcium 8.7 (8.7-10.3) mg/dL Magnesium (1.8-2.4) mg/dL Total Bilirubin 0.7 (0.2-1.0) mg/dL AST 27 (15-37) U/L ALT 27 (12-78) U/L Alkaline Phosphatase 213 H (46-116) IU/L Ammonia (11-32) umol/L Creatine Kinase 79 (26-276) U/L CK-MB (CK-2) 3.20 (0.00-4.30) ng/mL Troponin I < 0.04 (0.00-0.070) ng/mL B-Natriuretic Peptide 1630 H (0-100) pg/mL Total Protein 6.8 (6.4-8.2) g/dL Albumin 2.93 L (3.00-4.80) g/dL Ethyl Alcohol (0-3) mg/dL 03/20/18 03/20/18 03/21/18 Range/Units 13:00 13:00 07:10 WBC 10.5 H (5.0-10.0) 10^3/uL Corrected WBC (5.0-10.0) K/uL RBC 2.70 L (4.50-6.00) 10^6/uL Hgb 7.9 L (13.0-17.0) g/dL Hct 26.0 L (40.0-52.0) % MCV 96.3 H (82.0-92.0) fL MCH 29.2 (27.0-31.0) pg MCHC 30.3 L (32.0-36.0) g/dL RDW 22.8 H (11.5-14.5) % Plt Count 823 H (150-300) 10^3/uL MPV 8.3 (7.4-10.4) fL Neut % (Auto) 96.9 H (50.0-70.0) % Lymph % (Auto) 2.9 L (20.0-40.0) % [place] % (Auto) 0.1 L (2.0-8.0) % Eos % (Auto) 0.1 L (1.0-3.0) % Baso % (Auto) 0.0 (0.0-1.0) % Neut # (Auto) 10.2 H (2.5-7.0) 10^3/uL Lymph # (Auto) 0.3 L (1.0-4.0) 10^3/uL [place] # (Auto) 0.0 L (0.1-0.8) 10^3/uL Eos # (Auto) 0.0 L (0.1-0.3) 10^3/uL Baso # (Auto) 0.0 (0.0-0.1) 10^3/uL Add Manual Diff Neutrophils % (Manual) (50-70) % Lymphocytes % (Manual) (20-40) % Monocytes % (Manual) (2-8) % Eosinophils % (Manual) (1-3) % Absolute Neutrophils Lymphocytes # (Manual) Monocytes # (Manual) Eosinophils # (Manual) Nucleated RBCs Platelet Estimate Polychromasia Poikilocytosis Anisocytosis Microcytosis Macrocytosis Tear Drop Cells Ovalocytes Stomatocytes Schistocytes PT (8.9-11.4) SEC INR (0.9-1.1) APTT (20.8-31.2) SEC Sodium (136-145) mmol/L Potassium (3.3-5.3) mmol/L Chloride (98-115) mmol/L Carbon Dioxide (21.0-32.0) mmol/L BUN (6-25) mg/dL Creatinine (0.51-1.17) mg/dL Est Cr Clr Drug Dosing mL/min Estimated GFR (MDRD) mL/min Glucose (70-110) mg/dL Calcium (8.7-10.3) mg/dL Magnesium (1.8-2.4) mg/dL Total Bilirubin (0.2-1.0) mg/dL AST (15-37) U/L ALT (12-78) U/L Alkaline Phosphatase (46-116) IU/L Ammonia 15 (11-32) umol/L Creatine Kinase (26-276) U/L CK-MB (CK-2) (0.00-4.30) ng/mL Troponin I (0.00-0.070) ng/mL B-Natriuretic Peptide (0-100) pg/mL Total Protein (6.4-8.2) g/dL Albumin (3.00-4.80) g/dL Ethyl Alcohol < 3 (0-3) mg/dL 03/21/18 Range/Units 07:10 WBC (5.0-10.0) 10^3/uL Corrected WBC (5.0-10.0) K/uL RBC (4.50-6.00) 10^6/uL Hgb (13.0-17.0) g/dL Hct (40.0-52.0) % MCV (82.0-92.0) fL MCH (27.0-31.0) pg MCHC (32.0-36.0) g/dL RDW (11.5-14.5) % Plt Count (150-300) 10^3/uL MPV (7.4-10.4) fL Neut % (Auto) (50.0-70.0) % Lymph % (Auto) (20.0-40.0) % [place] % (Auto) (2.0-8.0) % Eos % (Auto) (1.0-3.0) % Baso % (Auto) (0.0-1.0) % Neut # (Auto) (2.5-7.0) 10^3/uL Lymph # (Auto) (1.0-4.0) 10^3/uL [place] # (Auto) (0.1-0.8) 10^3/uL Eos # (Auto) (0.1-0.3) 10^3/uL Baso # (Auto) (0.0-0.1) 10^3/uL Add Manual Diff Neutrophils % (Manual) (50-70) % Lymphocytes % (Manual) (20-40) % Monocytes % (Manual) (2-8) % Eosinophils % (Manual) (1-3) % Absolute Neutrophils Lymphocytes # (Manual) Monocytes # (Manual) Eosinophils # (Manual) Nucleated RBCs Platelet Estimate Polychromasia Poikilocytosis Anisocytosis Microcytosis Macrocytosis Tear Drop Cells Ovalocytes Stomatocytes Schistocytes PT (8.9-11.4) SEC INR (0.9-1.1) APTT (20.8-31.2) SEC Sodium 136 (136-145) mmol/L Potassium 4.1 (3.3-5.3) mmol/L Chloride 95 L (98-115) mmol/L Carbon Dioxide 34.6 H (21.0-32.0) mmol/L BUN 25 (6-25) mg/dL Creatinine 1.07 (0.51-1.17) mg/dL Est Cr Clr Drug Dosing 63.04 mL/min Estimated GFR (MDRD) > 60 mL/min Glucose 185 H (70-110) mg/dL Calcium 8.3 L (8.7-10.3) mg/dL Magnesium 2.7 H (1.8-2.4) mg/dL Total Bilirubin 0.6 (0.2-1.0) mg/dL AST 22 (15-37) U/L ALT 26 (12-78) U/L Alkaline Phosphatase 192 H (46-116) IU/L Ammonia (11-32) umol/L Creatine Kinase (26-276) U/L CK-MB (CK-2) (0.00-4.30) ng/mL Troponin I (0.00-0.070) ng/mL B-Natriuretic Peptide (0-100) pg/mL Total Protein 6.5 (6.4-8.2) g/dL Albumin 2.76 L (3.00-4.80) g/dL Ethyl Alcohol (0-3) mg/dL Med Orders - Current: Current Medications Albuterol (Ventolin Hfa) 0 gm INH Q4H PRN PRN Reason: Shortness of Breath Albuterol/Ipratropium (Duoneb 3.0-0.5 Mg/3 Ml) 3 ml NEB Q4H [facility] Last Admin: 03/21/18 05:46 Dose: 3 ml Atropine Sulfate (Atropine 0.1 Mg/Ml) 0 mg IVPUSH ASDIRECTED PRN PRN Reason: Heart Ceftriaxone Sodium (Rocephin) 1 gm IVPUSH Q24H [facility] Last Admin: 03/20/18 15:53 Dose: 1 gm Enoxaparin Sodium (Lovenox) 40 mg SUBCUT Q24H [facility] Epinephrine HCl (Epinephrine 1:10,000) 1 mg IVPUSH ASDIRECTED PRN PRN Reason: Heart Folic Acid (Folic Acid) 1 mg PO DAILY [facility] Last Admin: 03/20/18 15:53 Dose: 1 mg Furosemide (Lasix) 60 mg PO DAILY [facility] Hydrocortisone (Proctozone-Hc 2.5% Crm) 0 gm TOP QID PRN PRN Reason: hemorrhoid pain Hydroxyurea (Hydrea) 500 mg PO BID [facility] Azithromycin 500 mg/ Sodium (Chloride) 250 mls @ 250 mls/hr IV Q24H [facility] Last Admin: 03/20/18 16:05 Dose: 250 mls/hr Lidocaine HCl (Xylocaine 2%) 0 mg IVPUSH ASDIRECTED PRN PRN Reason: Heart Lisinopril (Prinivil) 2.5 mg PO DAILY [facility] Methylprednisolone Sodium Succinate (Solu-Medrol) 80 mg IVPUSH Q8H [facility] Last Admin: 03/21/18 05:49 Dose: 80 mg Nitroglycerin (Nitrostat) 0.4 mg SL ASDIRECTED PRN PRN Reason: Heart Non-Formulary Medication (Aspirin/Calcium Carbonate/Mag [Aspirin Buffered 325 Mg Tab]) 650 mg PO ASDIRECTED PRN PRN Reason: Headache Nystatin (Mycostatin) 10 ml PO 5XDAY [facility] Ondansetron HCl (Zofran Odt) 4 mg PO Q8H PRN PRN Reason: Nausea/Vomiting Pantoprazole Sodium (Protonix) 40 mg PO ACBREAKFAST [facility] Fluticasone/Salmeterol (Advair Diskus 250-50) 1 puff INH BID VAL Sodium Chloride (Syrex Flush) 5 ml FLUSH Q8H PRN PRN Reason: saline lock flush Discontinued Medications Albuterol (Ventolin Hfa) 0 gm INH Q4H PRN PRN Reason: Shortness of Breath Albuterol/Ipratropium (Duoneb 3.0-0.5 Mg/3 Ml) 3 ml NEB ONETIME ONE Stop: 03/20/18 12:58 Last Admin: 03/20/18 13:22 Dose: 3 ml Albuterol/Ipratropium (Duoneb 3.0-0.5 Mg/3 Ml) 3 ml INH QID PRN PRN Reason: Shortness of Breath Sodium Chloride (Normal Saline) 1,000 mls @ 999 mls/hr IV .BOLUS ONE Stop: 03/20/18 13:57 Last Admin: 03/20/18 13:23 Dose: 999 mls/hr Azithromycin 500 mg/ Sodium (Chloride) 250 mls @ 250 mls/hr IV Q24H [facility] Last Admin: 03/20/18 16:58 Dose: 250 mls/hr Magnesium Sulfate 1 gm/Multivitamins/Minerals 10 ml/Thiamine HCl 100 mg/ Dextrose/Sodium Chloride 1,013 mls @ 100 mls/hr IV ONETIME ONE Stop: 03/21/18 00:22 Last Admin: 03/20/18 14:54 Dose: 100 mls/hr Potassium Chloride (Kcl 20 Meq In Water 100 Ml) 100 mls @ 50 mls/hr IV ONETIME ONE Stop: 03/20/18 18:44 Last Admin: 03/20/18 17:59 Dose: 50 mls/hr Potassium Chloride (Kcl 20 Meq In Water 100 Ml) 100 mls @ 50 mls/hr IV ONETIME ONE Stop: 03/20/18 20:44 Last Admin: 03/20/18 19:49 Dose: 50 mls/hr Potassium Chloride (Klor-Con M20) 40 meq PO ONETIME ONE Stop: 03/20/18 14:05 Last Admin: 03/20/18 18:28 Dose: Not Given Sodium Chloride (Syrex Flush) 5 ml FLUSH Q8HR PRN PRN Reason: Keep Vein Open Last Admin: 03/21/18 05:50 Dose: 5 ml - Exam Quality Assessment: Supplemental Oxygen General: Alert, Other (Confused.) Neck: Supple Lungs: Decreased Breath Sounds, Other (I do not appreciate any wheezing today. ) Cardiovascular: Regular Rate, Regular Rhythm, Murmurs (2/6 systolic murmur.) GI/Abdominal Exam: Normal Bowel Sounds, Distended (Stable abdominal distention from chronic ascites. ) Extremities: No Pedal Edema - Problem List & Annotations (1) Essential thrombocythemia SNOMED Code(s): 388991802 Code(s): D47.3 - ESSENTIAL (HEMORRHAGIC) THROMBOCYTHEMIA Status: Acute Current Visit: Yes (2) CHF, Congestive heart failure SNOMED Code(s): 51382561 Code(s): I50.9 - HEART FAILURE, UNSPECIFIED Status: Acute Current Visit: Yes (3) Hypokalemia SNOMED Code(s): 38590415 Code(s): E87.6 - HYPOKALEMIA Status: Acute Current Visit: Yes (4) Pneumonia SNOMED Code(s): 453605357 Code(s): J18.9 - PNEUMONIA, UNSPECIFIED ORGANISM Status: Acute Current Visit: Yes (5) Acute exacerbation of chronic obstructive pulmonary disease (COPD) SNOMED Code(s): 248344944 Code(s): J44.1 - CHRONIC OBSTRUCTIVE PULMONARY DISEASE W (ACUTE) EXACERBATION Status: Acute Current Visit: No (6) Anemia SNOMED Code(s): 545633954 Code(s): D64.9 - ANEMIA, UNSPECIFIED Status: Acute Current Visit: No - Problem List Review Problem List Initiated/Reviewed/Updated: Yes - My Orders Last 24 Hours: My Active Orders 03/20/18 16:31 Ondansetron [Zofran ODT] 4 mg PO Q8H PRN Heat Therapy [OM.PC] Routine 03/21/18 05:50 Sodium Chloride 0.9% [Syrex Flush] 5 ml FLUSH Q8H PRN 03/21/18 08:29 Aspirin/Calcium Carbonate/Mag [Aspirin Buffered 325 mg Tab] 650 mg PO ASDIRECTED PRN Hydrocortisone [Proctozone-HC 2.5% Crm] 1 applic TOP ASDIRECTED PRN 03/21/18 08:30 Nystatin 10 ml SSPIT ASDIRECTED 03/21/18 08:33 Albuterol [Ventolin HFA] 0 gm INH Q4H PRN 03/21/18 08:47 Consult to Atm Manager [CONS] Routine Echo Comp wo Cont [US] Routine 03/21/18 09:00 Enoxaparin [Lovenox] 40 mg SUBCUT Q24H Fluticasone/Salmeterol [Advair Diskus 250-50] 1 puff INH BID Furosemide [Lasix] 60 mg PO DAILY Hydroxyurea [Hydrea] 500 mg PO BID Lisinopril [Prinivil] 2.5 mg PO DAILY 03/22/18 07:30 Pantoprazole [ProTONIX] 40 mg PO ACBREAKFAST - Assessment Assessment:: Right lower lobe pneumonia, probable. CHF, new diagnosis, likely alcohol related. Chronic ascites. Anemia. Thrombocythemia. COPD with acute exacerbation. - Plan Plan:: Right lower lobe pneumonia, probable. Continue rocephin and azithromycin. CHF, new diagnosis, likely alcohol related. Will start lisinopril 2.5 mg PO daily. Will consider coreg 3.125 mg PO BID if BP tolerates the lisinopril. Will continue with furosemide. Will get TTE. Chronic ascites. Will restart spironolactone and continue lasix. Anemia. Stable. Thrombocythemia. Continue hydroxyurea. COPD with acute exacerbation. Continue nebs, solumedrol for 1 more day, inhalers. His home lasix was 60 mg PO BID, which he has not been taking and he has never filled his spironolactone despite having directions to take 150 mg PO daily. Will stay on lasix 20 mg PO daily for now and will start spironolactone at 50 mg PO daily. Will check daily labs. Will get addiction social worker consults as well as PT eval and treat. Will start enoxaparin for DVT prophylaxis. Disposition is pending, not safe to go home at this time.
[2018-03-21] MEDS: Fluticasone/Salmeterol 250-50 MCG Inhalation Powder 14/Diskus INH SCH ×2 (09:38→20:17)
[2018-03-21] MEDS: Folic Acid 1 MG Tab PO SCH (09:39)
[2018-03-21] MEDS: Furosemide 20 MG Tab PO SCH (09:39)
[2018-03-21] MEDS: Hydroxyurea 500 MG Cap PO SCH ×2 (09:39→20:17)
[2018-03-21] MEDS: Enoxaparin 40 MG/0.4 ML Syringe SUBCUT SCH (09:40)
[2018-03-21] MEDS: Lisinopril 5 MG Tab PO SCH (09:41)
[2018-03-21] MEDS: Pantoprazole 40 MG Tab.CR PO SCH (10:00)
[2018-03-21] MEDS: Aspirin 81 MG Tab.EC PO SCH (10:01)
[2018-03-21] MEDS: Nystatin Susp 100,000 Unit/ML 5 ML UD Cup PO SCH ×4 (12:15→20:18)
[2018-03-21] MEDS: cefTRIAXone 1 GM Vial IVPUSH SCH (14:44)
[2018-03-21] MEDS ORDERED: Sodium Chloride 0.9% 100 ML ONE (16:00)
[2018-03-21] MEDS: Azithromycin 500 MG in Sodium Chloride 0.9% 250 ML IV SCH (16:04)
[2018-03-22] MEDS: Albuterol/Ipratropium 3.0-0.5 MG/3 ML Neb Soln NEB SCH ×6 (01:22→21:15)
[2018-03-22] MEDS: methylPREDNISolone Sodium Succinate 125 MG/2 ML SDV IVPUSH SCH (06:25)
[2018-03-22] MEDS: Pantoprazole 40 MG Tab.CR PO SCH (07:28)
[2018-03-22 08:05] LABS: CHLORIDE,CL 95 mmol/L (98-115); SODIUM,NA 138 mmol/L (136-145)
[2018-03-22] MEDS: Folic Acid 1 MG Tab PO SCH (08:14)
[2018-03-22] MEDS: Hydroxyurea 500 MG Cap PO SCH ×2 (08:16→20:26)
[2018-03-22] MEDS: Aspirin 81 MG Tab.EC PO SCH (08:16)
[2018-03-22] MEDS: Enoxaparin 40 MG/0.4 ML Syringe SUBCUT SCH (08:17)
[2018-03-22] MEDS: Furosemide 20 MG Tab PO SCH (08:22)
[2018-03-22] MEDS: Lisinopril 5 MG Tab PO SCH (08:22)
--- NOTE | 2018-03-22 09:16 | PCM.PN ---
- General Info Date of Service: 03/22/18 Admission Dx/Problem (Free Text): Probably RLL pneumonia, elevated BNP, COPD exacerbation. - Review of Systems Systems Review Comment:: Justino is seen on inpatient rounds today. He was admitted on 03/20/18 with confusion, SOB and probably RLL PNA. He is on rocephin and azithromycin. He was noted to have an elevated BNP and a TTE was performed on 03/21/18 which showed an EF of 65% with presumed diastolic dysfunction. His BP has not allowed us to add on an FRAN inhibitor or beta-janice at this time. He was noted to be restless last evening and an order was given for diazepam 5 mg IV x 1 dose, which did calm him down. He is eating breakfast this morning. He denies any pain. He states that his breathing is improved. His appetite is good. Nursing states he told them he had not eaten for 4 days prior to his admission. He also has not been taking his outpatient medications. He offers no concerns for me today. "I just need help at home". - Patient Data Vitals - Most Recent: Last Vital Signs Temp 97.5 F 03/22/18 06:52 Pulse 86 03/22/18 06:52 Resp 18 03/22/18 06:52 BP 108/55 L 03/22/18 06:52 Pulse Ox 96 03/22/18 08:58 Weight - Most Recent: 171 lb I&O - Last 24 Hours: Intake & Output 03/21/18 03/22/18 03/22/18 22:59 06:59 14:59 Intake Total 485 200 Balance 485 200 Lab Results Last 24 Hours: Laboratory Results - last 24 hr 03/22/18 Range/Units 07:05 Sodium 138 (136-145) mmol/L Potassium 4.6 (3.3-5.3) mmol/L Chloride 95 L (98-115) mmol/L Carbon Dioxide 35.0 H (21.0-32.0) mmol/L BUN 29 H (6-25) mg/dL Creatinine 1.10 (0.51-1.17) mg/dL Est Cr Clr Drug Dosing 61.32 mL/min Estimated GFR (MDRD) > 60 mL/min Glucose 118 H (70-110) mg/dL Calcium 8.3 L (8.7-10.3) mg/dL Total Bilirubin 0.5 (0.2-1.0) mg/dL AST 19 (15-37) U/L ALT 22 (12-78) U/L Alkaline Phosphatase 177 H (46-116) IU/L Total Protein 6.2 L (6.4-8.2) g/dL Albumin 2.75 L (3.00-4.80) g/dL Theodore Results Last 24 Hours: Microbiology 03/20/18 22:00 - Final Sputum - Expectorated 03/20/18 15:05 Aerobic Blood Culture - Preliminary Blood - Venous - Lab Draw NO GROWTH AFTER 1 DAY Anaerobic Blood Culture - Preliminary NO GROWTH AFTER 1 DAY 03/20/18 14:45 Aerobic Blood Culture - Preliminary Blood - Venous NO GROWTH AFTER 1 DAY Anaerobic Blood Culture - Preliminary NO GROWTH AFTER 1 DAY Med Orders - Current: Current Medications Albuterol (Ventolin Hfa) 0 gm INH Q4H PRN PRN Reason: Shortness of Breath Albuterol/Ipratropium (Duoneb 3.0-0.5 Mg/3 Ml) 3 ml NEB Q4H [facility] Last Admin: 03/22/18 06:25 Dose: 3 ml Aspirin (Halfprin) 81 mg PO DAILY [facility] Last Admin: 03/22/18 08:16 Dose: 81 mg Atropine Sulfate (Atropine 0.1 Mg/Ml) 0 mg IVPUSH ASDIRECTED PRN PRN Reason: Heart Ceftriaxone Sodium (Rocephin) 1 gm IVPUSH Q24H [facility] Last Admin: 03/21/18 14:44 Dose: 1 gm Enoxaparin Sodium (Lovenox) 40 mg SUBCUT Q24H [facility] Last Admin: 03/22/18 08:17 Dose: 40 mg Epinephrine HCl (Epinephrine 1:10,000) 1 mg IVPUSH ASDIRECTED PRN PRN Reason: Heart Folic Acid (Folic Acid) 1 mg PO DAILY [facility] Last Admin: 03/22/18 08:14 Dose: 1 mg Furosemide (Lasix) 60 mg PO DAILY [facility] Last Admin: 03/22/18 08:22 Dose: 60 mg Hydrocortisone (Proctozone-Hc 2.5% Crm) 0 gm TOP QID PRN PRN Reason: hemorrhoid pain Hydroxyurea (Hydrea) 500 mg PO BID [facility] Last Admin: 03/22/18 08:16 Dose: 500 mg Azithromycin 500 mg/ Sodium (Chloride) 250 mls @ 250 mls/hr IV Q24H [facility] Last Admin: 03/21/18 16:04 Dose: 250 mls/hr Lidocaine HCl (Xylocaine 2%) 0 mg IVPUSH ASDIRECTED PRN PRN Reason: Heart Lisinopril (Prinivil) 2.5 mg PO DAILY [facility] Last Admin: 03/22/18 08:22 Dose: Not Given Nitroglycerin (Nitrostat) 0.4 mg SL ASDIRECTED PRN PRN Reason: Heart Nystatin (Mycostatin) 10 ml PO 5XDAY [facility] Last Admin: 03/21/18 20:18 Dose: 10 ml Ondansetron HCl (Zofran Odt) 4 mg PO Q8H PRN PRN Reason: Nausea/Vomiting Pantoprazole Sodium (Protonix) 40 mg PO ACBREAKFAST [facility] Last Admin: 03/22/18 07:28 Dose: 40 mg Fluticasone/Salmeterol (Advair Diskus 250-50) 1 puff INH BID [facility] Last Admin: 03/21/18 20:17 Dose: 1 puff Sodium Chloride (Syrex Flush) 5 ml FLUSH Q8H PRN PRN Reason: saline lock flush Spironolactone (Aldactone) 25 mg PO DAILY [facility] Discontinued Medications Albuterol (Ventolin Hfa) 0 gm INH Q4H PRN PRN Reason: Shortness of Breath Albuterol/Ipratropium (Duoneb 3.0-0.5 Mg/3 Ml) 3 ml NEB ONETIME ONE Stop: 03/20/18 12:58 Last Admin: 03/20/18 13:22 Dose: 3 ml Albuterol/Ipratropium (Duoneb 3.0-0.5 Mg/3 Ml) 3 ml INH QID PRN PRN Reason: Shortness of Breath Diazepam (Valium) 5 mg IVPUSH ONETIME ONE Stop: 03/22/18 01:06 Last Admin: 03/22/18 01:39 Dose: 5 mg Sodium Chloride (Normal Saline) 1,000 mls @ 999 mls/hr IV .BOLUS ONE Stop: 03/20/18 13:57 Last Admin: 03/20/18 13:23 Dose: 999 mls/hr Azithromycin 500 mg/ Sodium (Chloride) 250 mls @ 250 mls/hr IV Q24H [facility] Last Admin: 03/20/18 16:58 Dose: 250 mls/hr Magnesium Sulfate 1 gm/Multivitamins/Minerals 10 ml/Thiamine HCl 100 mg/ Dextrose/Sodium Chloride 1,013 mls @ 100 mls/hr IV ONETIME ONE Stop: 03/21/18 00:22 Last Admin: 03/20/18 14:54 Dose: 100 mls/hr Potassium Chloride (Kcl 20 Meq In Water 100 Ml) 100 mls @ 50 mls/hr IV ONETIME ONE Stop: 03/20/18 18:44 Last Admin: 03/20/18 17:59 Dose: 50 mls/hr Potassium Chloride (Kcl 20 Meq In Water 100 Ml) 100 mls @ 50 mls/hr IV ONETIME ONE Stop: 03/20/18 20:44 Last Admin: 03/20/18 19:49 Dose: 50 mls/hr Sodium Chloride (Normal Saline) Confirm Administered Dose 100 mls @ as directed .ROUTE .STK-MED ONE Stop: 03/21/18 16:01 Last Admin: 03/21/18 16:04 Dose: 25 mls/hr Methylprednisolone Sodium Succinate (Solu-Medrol) 80 mg IVPUSH Q8H [facility] Last Admin: 03/22/18 06:25 Dose: 80 mg Potassium Chloride (Klor-Con M20) 40 meq PO ONETIME ONE Stop: 03/20/18 14:05 Last Admin: 03/20/18 18:28 Dose: Not Given Sodium Chloride (Syrex Flush) 5 ml FLUSH Q8HR PRN PRN Reason: Keep Vein Open Last Admin: 03/21/18 05:50 Dose: 5 ml - Exam Quality Assessment: Supplemental Oxygen General: Alert, Oriented, Cooperative, No Acute Distress Lungs: Decreased Breath Sounds, Wheezing Cardiovascular: Regular Rate, Regular Rhythm, Murmurs (2/6 systolic murmur) GI/Abdominal Exam: Normal Bowel Sounds, Soft, Distended (Distended with chronic ascites but soft.) Extremities: Normal Inspection, No Pedal Edema - Problem List & Annotations (1) Essential thrombocythemia SNOMED Code(s): 269034423 Code(s): D47.3 - ESSENTIAL (HEMORRHAGIC) THROMBOCYTHEMIA Status: Acute Current Visit: Yes (2) CHF, Congestive heart failure SNOMED Code(s): 98713272 Code(s): I50.9 - HEART FAILURE, UNSPECIFIED Status: Acute Current Visit: Yes (3) Hypokalemia SNOMED Code(s): 74038297 Code(s): E87.6 - HYPOKALEMIA Status: Resolved Current Visit: Yes (4) Pneumonia SNOMED Code(s): 870679829 Code(s): J18.9 - PNEUMONIA, UNSPECIFIED ORGANISM Status: Acute Current Visit: Yes (5) Acute exacerbation of chronic obstructive pulmonary disease (COPD) SNOMED Code(s): 997815535 Code(s): J44.1 - CHRONIC OBSTRUCTIVE PULMONARY DISEASE W (ACUTE) EXACERBATION Status: Acute Current Visit: No (6) Anemia SNOMED Code(s): 288614130 Code(s): D64.9 - ANEMIA, UNSPECIFIED Status: Acute Current Visit: No (7) Heart failure with preserved ejection fraction SNOMED Code(s): 43757808 Code(s): I50.30 - UNSPECIFIED DIASTOLIC (CONGESTIVE) HEART FAILURE Status: Acute Current Visit: Yes - Problem List Review Problem List Initiated/Reviewed/Updated: Yes - My Orders Last 24 Hours: My Active Orders 03/21/18 08:29 Hydrocortisone [Proctozone-HC 2.5% Crm] 0 gm TOP QID PRN 03/21/18 08:33 Albuterol [Ventolin HFA] 0 gm INH Q4H PRN 03/21/18 08:47 Consult to Supervisor Inspecting [CONS] Routine 03/21/18 09:00 Enoxaparin [Lovenox] 40 mg SUBCUT Q24H Fluticasone/Salmeterol [Advair Diskus 250-50] 1 puff INH BID Furosemide [Lasix] 60 mg PO DAILY Hydroxyurea [Hydrea] 500 mg PO BID Lisinopril [Prinivil] 2.5 mg PO DAILY Pantoprazole [ProTONIX] 40 mg PO ACBREAKFAST 03/21/18 09:25 PT Evaluation and Treatment [CONS] Routine 03/21/18 09:45 Aspirin [Halfprin] 81 mg PO DAILY 03/21/18 11:00 Nystatin [Mycostatin] 10 ml PO 5XDAY 03/22/18 07:05 CBC WITH AUTO DIFF [HEME] AM 03/22/18 09:15 Spironolactone [Aldactone] 25 mg PO DAILY 03/23/18 05:11 CBC WITH AUTO DIFF [HEME] AM COMPREHENSIVE METABOLIC PN,CMP [CHEM] AM 03/24/18 05:11 CBC WITH AUTO DIFF [HEME] AM COMPREHENSIVE METABOLIC PN,CMP [CHEM] AM 03/25/18 05:11 CBC WITH AUTO DIFF [HEME] AM COMPREHENSIVE METABOLIC PN,CMP [CHEM] AM 03/26/18 05:11 CBC WITH AUTO DIFF [HEME] AM COMPREHENSIVE METABOLIC PN,CMP [CHEM] AM - Assessment Assessment:: Right lower lobe pneumonia, probable. CHF, new diagnosis, likely alcohol related. Chronic ascites. Anemia. Thrombocythemia. COPD with acute exacerbation. - Plan Plan:: Right lower lobe pneumonia, probable. Continue rocephin and azithromycin. CHF, new diagnosis, likely alcohol related. TTE performed on 03/21/18, prelim report of HFpEF, EF 65%. Continue lasix 60 mg PO daily. Unable to start ACEI or Beta-janice at this time due to relatively low BP. Chronic ascites. Will restart spironolactone at 25 mg PO daily and continue lasix. Anemia. Stable. Thrombocythemia. Continue hydroxyurea. COPD with acute exacerbation. Continue nebs. Respiratory status improved, will discontinue solumedrol today. Will check daily labs. Will get social services designee consults as well as PT eval and treat. Will start enoxaparin for DVT prophylaxis. Disposition is pending, possible transfer to [facility] tomorrow (03/23) vs. discharge to [facility] which would likely be a temporary placement until he is strong enough to go back to independent living.
[2018-03-22] MEDS: Fluticasone/Salmeterol 250-50 MCG Inhalation Powder 14/Diskus INH SCH ×2 (09:20→20:31)
[2018-03-22] MEDS: Spironolactone 25 MG Tab PO SCH (09:21)
[2018-03-22] MEDS: Nystatin Susp 100,000 Unit/ML 5 ML UD Cup PO SCH ×5 (09:22→20:25)
[2018-03-22] MEDS: cefTRIAXone 1 GM Vial IVPUSH SCH (16:07)
[2018-03-22] MEDS: Azithromycin 500 MG in Sodium Chloride 0.9% 250 ML IV SCH (16:09)
[2018-03-23] MEDS: Albuterol/Ipratropium 3.0-0.5 MG/3 ML Neb Soln NEB SCH ×3 (01:49→10:17)
[2018-03-23 06:54] VITALS: BP 102/59
[2018-03-23 07:57] LABS: CHLORIDE,CL 97 mmol/L (98-115); SODIUM,NA 134 mmol/L (136-145)
[2018-03-23] MEDS: Fluticasone/Salmeterol 250-50 MCG Inhalation Powder 14/Diskus INH SCH (09:04)
[2018-03-23] MEDS: Nystatin Susp 100,000 Unit/ML 5 ML UD Cup PO SCH ×2 (09:05→10:18)
[2018-03-23] MEDS: Enoxaparin 40 MG/0.4 ML Syringe SUBCUT SCH (09:05)
[2018-03-23] MEDS: Furosemide 20 MG Tab PO SCH (09:06)
[2018-03-23] MEDS: Lisinopril 5 MG Tab PO SCH (09:06)
[2018-03-23] MEDS: Folic Acid 1 MG Tab PO SCH (09:06)
[2018-03-23] MEDS: Pantoprazole 40 MG Tab.CR PO SCH (09:06)
[2018-03-23] MEDS: Aspirin 81 MG Tab.EC PO SCH (09:06)
[2018-03-23] MEDS: Hydroxyurea 500 MG Cap PO SCH (09:06)
[2018-03-23] MEDS: Spironolactone 25 MG Tab PO SCH (09:14)
[2018-03-23] MEDS: Azithromycin 500 MG in Sodium Chloride 0.9% 250 ML IV SCH (10:18)
--- NOTE | 2018-03-24 13:27 | DISCH ---
HOSPITAL COURSE: This is a 67-year-old male who was admitted to the hospital on 03/20/2018 with confusion, shortness of breath, and probable right lower pneumonia. He was treated with Rocephin and azithromycin. Today, he would have his fifth dose of azithromycin per IV. He was to get it at four o'clock. However, we are moving it up to 10 a.m. this morning so he can receive his last dose intravenously prior to transfer to a senior care facility. He is being transferred today to senior care facility [facility]. The patient has had an elevated BNP. A transthoracic echocardiogram was performed on 03/21/2018, which showed an ejection fraction of 46% with presumed diastolic dysfunction. He has been hypotensive, so he is unable to tolerate FRAN inhibitor or beta janice at this time. The patient has had a fairly good appetite. He has not been taking his outpatient medications and not eating properly at home. He is in need of further rehabilitation with physical therapy as well as occupational therapy. There is a possibility that he may be able to be transferred or discharged from the custodial this will be determined at a later date. The patient received 2 units of packed RBCs yesterday for hemoglobin of 6.9. Labs from today are reviewed. He has had an elevated white count, mild elevation of his white count. Today, his white count is normal at 8.9. Hemoglobin is 8.5 after 2 units of packed RBCs yesterday. Hematocrit is 27.9. Platelet count is 463,000. This was as high as 900,000. This has improved considerably. Comprehensive metabolic panel today shows sodium of 134 which is mildly low normal reference range in our lab is 136 to 145. Potassium is normal at 5.0, it was 3.0 on admission. CO2 is 36.2. BUN is 26, creatinine 1.02, estimated creatinine clearance is 66.13 with a GFR of greater than 60. Calcium is low at 8.6, mostly related to his hypoalbuminemia, albumin is 2.73. Total protein is 6.0. PHYSICAL EXAMINATION: VITAL SIGNS: Temp is 97.6, pulse is 92, respirations 18, blood pressure 102/59, his O2 saturation is 94% on 2 L of oxygen. SKIN: Warm and dry to touch. CARDIAC: Reveals S1, S2 to be normal. Rate and rhythm are regular. No murmur, click, or gallop is auscultated. LUNGS: Have coarse rhonchi and some expiratory wheezing throughout. ABDOMEN: Soft, nontender. Bowel sounds present in all four quadrants. There is no pedal edema. IMPRESSION: 1. Essential thrombocythemia, this has improved. 2. Congestive heart failure, this has improved. He is not being discharged on a beta-janice or an FRAN inhibitor due to the fact that he has had hypotension. 3. Hypokalemia, this has resolved. Potassium today is 5.0. 4. Pneumonia. He has been treated with five days of Rocephin and azithromycin. No need for further antibiotics at this time. 5. Acute exacerbation of chronic obstructive pulmonary disease. We will continue his medications as before. 6. Anemia. Hemoglobin of 6.9 yesterday. He did receive packed RBCs for a total of 2 units. His hemoglobin today is as stated in the History of present illness. 7. Heart failure with preserved ejection fraction. He will continue on spironolactone as well as Lasix. Please note that he was supposed to be taking Lasix 60 mg t.i.d. at home, however, was not taking it at all, and he was to be taking spironolactone 50 mg daily at home, however, was not taking it either. Dr. Henson added these medications back in at a conservative dose of Lasix 60 mg once daily and spironolactone 25 mg daily. We will continue these and she will follow him on [place] rounds at the custodial. DISCHARGE MEDICATIONS: As follows albuterol 1 to 2 puffs inhalation every 4 hours as needed for shortness of breath, DuoNeb 3 mL every 4 hours as needed for shortness of breath, allopurinol 300 mg orally daily, aspirin 81 mg daily, Advair 250/50 Diskus one puff inhalation twice a day, furosemide 60 mg once daily, Proctozone cream topically to hemorrhoids daily as needed, folic acid 1 mg daily, hydroxyurea 500 mg b.i.d., nystatin swish and swallow as directed, pantoprazole 40 mg p.o. daily, spironolactone 25 mg daily. /[id number]/MODL
--- NOTE | 2018-03-24 13:30 | DISCH ---
ADDENDUM: His corrected calcium is 9.6 mg/dL, which is within normal limits. /[id number]/MODL
== END 2018-03-23 11:48 | DRG 190 ==
LOC: KA.ED 12:15 → KA.MS 13:49
PROVIDERS: ADMIT Physician Assistant Medical; ATTEND Internal Medicine
PROC: 30233N1 Transfusion of Nonautologous Red Blood Cells into Peripheral Vein, Percutaneous Approach (ICD-10-PCS; principal; 2018-03-22)
DX: J44.0 Chronic obstructive pulmonary disease with (acute) lower respiratory infection (principal); I50.9 Heart failure, unspecified; J18.9 Pneumonia, unspecified organism; D69.6 Thrombocytopenia, unspecified; I50.30 Unspecified diastolic (congestive) heart failure; R18.8 Other ascites; I10 Essential (primary) hypertension; J44.9 Chronic obstructive pulmonary disease, unspecified; M19.90 Unspecified osteoarthritis, unspecified site; F17.200 Nicotine dependence, unspecified, uncomplicated; J44.1 Chronic obstructive pulmonary disease with (acute) exacerbation; I11.0 Hypertensive heart disease with heart failure; R09.02 Hypoxemia; E87.6 Hypokalemia; F10.10 Alcohol abuse, uncomplicated; R41.0 Disorientation, unspecified; R79.89 Other specified abnormal findings of blood chemistry; D47.3 Essential (hemorrhagic) thrombocythemia; D64.9 Anemia, unspecified; Z79.899 Other long term (current) drug therapy; Z79.82 Long term (current) use of aspirin; I95.9 Hypotension, unspecified
CPT/HCPCS: 36415; 36430; 71045; 80053; 82140; 82550; 82553; 83735; 83880; 84484; 85025; 85610; 85730; 86850; 86900; 86901; 86920; 86922; 87040; 87070; 87077; 87205; 93005; 93306; 94640; 97162-GP; 99285; A9270-GY; G0480; J0456; J0696; J1650; J2930; J3360; J3411; J3475; J3480; J7030; J7042; J7050; P9016

== ENCOUNTER 2018-06-01 10:14 | Inpatient (IN) | payer MEDICARE, OTHER ==
[2018-06-01] MEDS ORDERED: Sodium Chloride 0.9% 5 ML Syringe FLUSH PRN ×2 (10:49→11:29)
--- NOTE | 2018-06-01 10:49 | EDM.PDOC ---
ED HPI GENERAL MEDICAL PROBLEM - General Chief Complaint: General Stated Complaint: Anemia Time Seen by Provider: 06/01/18 10:35 Source of Information: Reports: Patient, [place] Records History Limitations: Reports: No Limitations - History of Present Illness INITIAL COMMENTS - FREE TEXT/NARRATIVE: 67 YO WM [place] with increased cough and congestion this am and abnormal labs. Unsure why blood work was performed [place], but pt found to have Hgb- 6.5, WBC-16.9, and Na- 131. Pt without complaints. Pt reports his cough is nonproductive and denies any chest pain or increased shortness of breath. Pt reports he is oxygen dependent and hasn't required more than his 2L by [facility]. Pt denies any bloody or black stools. Pt denies any back pain or lightheadedness or weakness. Pt alert and oriented x 4 Onset: Today Duration: Day(s): (1) Location: Reports: Generalized Severity: Mild Improves with: Reports: None Worsens with: Reports: None Associated Symptoms: Reports: Cough, Loss of Appetite - Related Data Allergies Allergy/AdvReac Type Severity Reaction Status Date / Time No Known Drug Allergies Allergy Cannot Verified 06/01/18 10:50 Remember Home Meds: Home Meds Pantoprazole Sodium 40 mg PO ACBREAKFAST 02/25/15 [History] Albuterol [Proair HFA] 1 - 2 puff INH Q4H PRN 02/26/15 [History] Albuterol/Ipratropium [DuoNeb 3.0-0.5 MG/3 ML] 3 ml NEB Q4H PRN 09/05/16 [ History] Hydrocortisone [Proctozone-HC 2.5% Crm] 1 applic TOP QID PRN 11/08/16 [History] Hydroxyurea [Hydrea] 500 mg PO BID 11/05/17 [History] Fluticasone/Salmeterol [Advair 250-50 Diskus] 1 puff INH BID 03/20/18 [History] Allopurinol [Zyloprim] 300 mg PO DAILY 03/21/18 [History] Albuterol/Ipratropium [DuoNeb 3.0-0.5 MG/3 ML] 3 ml NEB Q4H neb 03/23/18 [Rx] Aspirin [Halfprin] 81 mg PO DAILY tab.ec 03/23/18 [Rx] Folic Acid 1 mg PO DAILY tablet 03/23/18 [Rx] Furosemide [Lasix] 60 mg PO DAILY tablet 03/23/18 [Rx] Spironolactone [Aldactone] 25 mg PO DAILY tablet 03/23/18 [Rx] Ibuprofen [Advil] 400 mg PO BID PRN 06/01/18 [History] LORazepam 0.5 mg PO BID 06/01/18 [History] Past Medical History HEENT History: Reports: Cataract, Impaired Vision Cardiovascular History: Reports: Hypertension, SOB on Exertion Respiratory History: Reports: COPD, SOB, Other (See Below) Other Respiratory History: emphysema Gastrointestinal History: Reports: Cirrhosis, GI Bleed, Other (See Below) Other Gastrointestinal History: ascites, stomach ulcer- had a endoscopy in 2014 and there was no evidence of bleeding at that time Musculoskeletal History: Reports: Arthritis Neurological History: Reports: Headaches, Chronic Other Neuro History: etoh use Psychiatric History: Reports: Addiction, Other (See Below) Other Psychiatric History: alcohol and nicotine Endocrine/Metabolic History: Reports: Obesity/BMI 30+ Hematologic History: Reports: Anemia, Other (See Below) Other Hematologic History: thrombocytopenia, take 6 tabs of 325 mg aspirin daily Dermatologic History: Reports: Other (See Below) Other Dermatologic History: multiple scratched open area on chest, back and wesley arms - Infectious Disease History Infectious Disease History: Reports: Chicken Pox, Measles, Other (See Below) Other Infectious Disease History: non infectious hepatitis - Past Surgical History HEENT Surgical History: Reports: Cataract Surgery, Naso-Sinus Surgery GI Surgical History: Reports: Hernia, Abdominal, Hernia, Inguinal, Hernia Repair /Other Endocrine Surgical History: Reports: None Social & Family History - Family History Family Medical History: Noncontributory Cardiac: Reports: Heart Failure - Caffeine Use Caffeine Use: Reports: Coffee Other Caffeine Use: coke and powerade - Living Situation & Occupation Living situation: Reports: Single Occupation: Retired [employer] GENERAL - Review of Systems Review Of Systems: See Below Constitutional: Reports: No Symptoms HEENT: Reports: No Symptoms Respiratory: Reports: Cough. Denies: Wheezing, Pleuritic Chest Pain, Hemoptysis Cardiovascular: Reports: No Symptoms Endocrine: Reports: No Symptoms GI/Abdominal: Reports: No Symptoms : Reports: No Symptoms Musculoskeletal: Reports: No Symptoms Skin: Reports: No Symptoms Neurological: Reports: No Symptoms Psychiatric: Reports: No Symptoms Hematologic/Lymphatic: Reports: No Symptoms Immunologic: Reports: No Symptoms ED EXAM, GENERAL - Physical Exam Exam: See Below Exam Limited By: No Limitations General Appearance: Alert, WD/WN, No Apparent Distress Throat/Mouth: Normal Inspection, Normal Lips, Normal Teeth, Normal Gums, Normal Oropharynx, Normal Voice, No Airway Compromise Head: Atraumatic, Normocephalic Neck: Normal Inspection, Supple, Non-Tender, Full Range of Motion Respiratory/Chest: No Respiratory Distress, No Accessory Muscle Use, Chest Non- Tender, Rhonchi, Wheezing, Prolonged Expiration. No: Accessory Muscle Use, Retractions, Splinting Cardiovascular: Normal Peripheral Pulses, Regular Rate, Rhythm, No Edema, No Gallop, No JVD, No Murmur, No Rub GI/Abdominal: Normal Bowel Sounds, Soft, Non-Tender, No Organomegaly, No Distention, No Abnormal Bruit, No Mass Back Exam: Normal Inspection, Full Range of Motion, NT Extremities: Normal Inspection, Normal Range of Motion, Non-Tender, Normal Capillary Refill, No Pedal Edema Neurological: Alert, Oriented, CN II-XII Intact, Normal Cognition, Normal Gait, Normal Reflexes, No Motor/Sensory Deficits Psychiatric: Normal Affect, Normal Mood Skin Exam: Warm, Dry, Intact, Normal Color, No Rash Lymphatic: No Adenopathy Course - Vital Signs Last Recorded V/S: Last Vital Signs Temp 37.4 C 06/01/18 10:48 Pulse 109 H 06/01/18 10:48 Resp 20 06/01/18 10:48 BP 116/58 L 06/01/18 10:48 Pulse Ox 92 L 06/01/18 10:48 - Orders/Labs/Meds Orders: Active Orders 24 hr Category Date Time Status Patient Status Manage Transfer [TRANSFER] Routine ADT 06/01/18 11:27 Ordered Patient Status [ADT] Routine ADT 06/01/18 11:29 Ordered Oxygen Therapy [RC] PRN Care 06/01/18 11:29 Active Peripheral IV Care [RC] . DIRECTED Care 06/01/18 10:50 Active Peripheral IV Care [RC] . DIRECTED Care 06/01/18 11:32 Active Pulse Oximetry [RC] PRN Care 06/01/18 11:30 Active RT Aerosol Therapy [RC] ASDIRECTED Care 06/01/18 11:15 Active RT Aerosol Therapy [RC] ASDIRECTED Care 06/01/18 11:32 Active Up With Assistance [RC] ASDIRECTED Care 06/01/18 11:29 Active VTE/DVT Education [RC] PER UNIT ROUTINE Care 06/01/18 11:29 Active Vital Signs [RC] Q4H Care 06/01/18 11:29 Active Regular Diet [DIET] Diet 06/01/18 Lunch Active Chest 2V [CR] Stat Exams 06/01/18 10:49 Ordered CBC WITH AUTO DIFF [HEME] AM Lab 06/02/18 05:11 Ordered COMPREHENSIVE METABOLIC PN,CMP [CHEM] AM Lab 06/02/18 05:11 Ordered CULTURE SPUTUM + SMEAR [RM] Stat Lab 06/01/18 11:29 Ordered TYPE AND SCREEN [BBK] Stat Lab 06/01/18 10:49 Ordered UA W/MICROSCOPIC [URIN] Stat Lab 06/01/18 10:49 Ordered Albuterol/Ipratropium [DuoNeb 3.0-0.5 MG/3 ML] Med 06/01/18 11:30 Active 3 ml NEB Q4H Azithromycin [Zithromax] 500 mg Med 06/01/18 11:45 Active Sodium Chloride 0.9% [Normal Saline] 250 ml IV Q24H Sodium Chloride 0.9% [Syrex Flush] Med 06/01/18 10:49 Active 5 ml FLUSH Q8HR PRN Sodium Chloride 0.9% [Syrex Flush] Med 06/01/18 11:29 Active 5 ml FLUSH Q8HR PRN cefTRIAXone [Rocephin] Med 06/01/18 11:45 Active 1 gm IVPUSH Q24H methylPREDNISolone Sod Succ [Solu-MEDROL] Med 06/01/18 11:45 Active 80 mg IVPUSH Q8H Peripheral IV Insertion Adult [OM.PC] Routine Oth 06/01/18 10:49 Ordered Peripheral IV Insertion Adult [OM.PC] Routine Oth 06/01/18 11:29 Ordered Sequential Compression Device [OM.PC] Per Unit Routine Oth 06/01/18 11:31 Ordered Transfuse Red Blood Cells [COMM] Stat Oth 06/01/18 11:34 Ordered Resuscitation Status Routine Resus Stat 06/01/18 11:29 Ordered Medication Orders Albuterol/Ipratropium (Duoneb 3.0-0.5 Mg/3 Ml) 3 ml NEB Q4H VAL Ceftriaxone Sodium (Rocephin) 1 gm IVPUSH Q24H [facility] Azithromycin 500 mg/ Sodium (Chloride) 250 mls @ 250 mls/hr IV Q24H VAL Methylprednisolone Sodium Succinate (Solu-Medrol) 80 mg IVPUSH Q8H VAL Sodium Chloride (Syrex Flush) 5 ml FLUSH Q8HR PRN PRN Reason: Keep Vein Open Sodium Chloride (Syrex Flush) 5 ml FLUSH Q8HR PRN PRN Reason: Keep Vein Open Labs: Laboratory Tests 06/01/18 06/01/18 Range/Units 10:49 10:49 PT 11.8 H (8.9-11.4) SEC INR 1.2 H (0.9-1.1) APTT 28.6 (20.8-31.2) SEC Specimen Type Urinvoid Urine Color Yellow (YELLOW) Urine Appearance Clear (CLEAR) Urine pH 5.5 (5.0-9.0) Ur Specific Ross 1.010 (1.005-1.030) Urine Protein Trace H (NEGATIVE) mg/dL Urine Glucose (UA) Negative (NEGATIVE) mg/dL Urine Ketones Negative (NEGATIVE) mg/dL Urine Occult Blood Negative (NEGATIVE) Urine Nitrite Negative (NEGATIVE) Urine Bilirubin Negative (NEGATIVE) Urine Urobilinogen 0.2 (0.2-1.0) E.U./dL Ur Leukocyte Esterase Negative (NEGATIVE) Urine RBC Not seen /HPF Urine WBC 0-5 /HPF Ur Epithelial Cells Rare /LPF Urine Bacteria Not seen (NONE TO FEW) /HPF Meds: Medications Generic Name Dose Route Start Last Admin Trade Name Freq PRN Reason Stop Dose Admin Albuterol/Ipratropium 3 ml 06/01/18 11:30 Duoneb 3.0-0.5 Mg/3 Ml NEB Q4H [facility] Ceftriaxone Sodium 1 gm 06/01/18 11:45 Rocephin IVPUSH Q24H [facility] Azithromycin 500 mg/ Sodium 250 mls @ 250 mls/hr 06/01/18 11:45 Chloride IV Q24H [facility] Methylprednisolone Sodium Succinate 80 mg 06/01/18 11:45 Solu-Medrol IVPUSH Q8H [facility] Sodium Chloride 5 ml 06/01/18 10:49 Syrex Flush FLUSH Q8HR PRN Keep Vein Open Sodium Chloride 5 ml 06/01/18 11:29 Syrex Flush FLUSH Q8HR PRN Keep Vein Open Discontinued Medications Generic Name Dose Route Start Last Admin Trade Name Freq PRN Reason Stop Dose Admin Albuterol/Ipratropium 3 ml 06/01/18 11:15 06/01/18 11:25 Duoneb 3.0-0.5 Mg/3 Ml NEB 06/01/18 11:16 3 ml ONETIME ONE Administration Furosemide 20 mg 06/01/18 11:35 Lasix IVPUSH 06/01/18 11:36 NOW ONE Furosemide 20 mg 06/01/18 11:36 Lasix IVPUSH 06/01/18 11:37 NOW ONE Methylprednisolone Sodium Succinate 125 mg 06/01/18 11:15 06/01/18 11:25 Solu-Medrol IVPUSH 06/01/18 11:16 125 mg ONETIME ONE Administration - Radiology Interpretation Free Text/Narrative:: CXR- NAD Departure - Departure Time of Disposition: 11:18 Disposition: Admitted As Inpatient 64 Condition: Fair Clinical Impression: Acute exacerbation of chronic obstructive pulmonary disease (COPD), Ascites due to alcoholic cirrhosis - Discharge Information Referrals: Fadia Rajan MD [Primary Care Provider] - Forms: ED Department Discharge - My Orders Last 24 Hours: My Active Orders 06/01/18 10:49 Chest 2V [CR] Stat TYPE AND SCREEN [BBK] Stat UA W/MICROSCOPIC [URIN] Stat Sodium Chloride 0.9% [Syrex Flush] 5 ml FLUSH Q8HR PRN Peripheral IV Insertion Adult [OM.PC] Routine 06/01/18 10:50 Peripheral IV Care [RC] . DIRECTED 06/01/18 11:15 RT Aerosol Therapy [RC] ASDIRECTED 06/01/18 11:27 Patient Status Manage Transfer [TRANSFER] Routine 06/01/18 11:29 Patient Status [ADT] Routine Oxygen Therapy [RC] PRN Up With Assistance [RC] ASDIRECTED VTE/DVT Education [RC] PER UNIT ROUTINE Vital Signs [RC] Q4H CULTURE SPUTUM + SMEAR [RM] Stat Sodium Chloride 0.9% [Syrex Flush] 5 ml FLUSH Q8HR PRN Peripheral IV Insertion Adult [OM.PC] Routine Resuscitation Status Routine 06/01/18 11:30 Pulse Oximetry [RC] PRN Albuterol/Ipratropium [DuoNeb 3.0-0.5 MG/3 ML] 3 ml NEB Q4H 06/01/18 11:31 Sequential Compression Device [OM.PC] Per Unit Routine 06/01/18 11:32 Peripheral IV Care [RC] . DIRECTED RT Aerosol Therapy [RC] ASDIRECTED 06/01/18 11:34 Transfuse Red Blood Cells [COMM] Stat 06/01/18 11:45 Azithromycin [Zithromax] 500 mg Sodium Chloride 0.9% [Normal Saline] 250 ml IV Q24H cefTRIAXone [Rocephin] 1 gm IVPUSH Q24H methylPREDNISolone Sod Succ [Solu-MEDROL] 80 mg IVPUSH Q8H 06/01/18 Lunch Regular Diet [DIET] 06/02/18 05:11 CBC WITH AUTO DIFF [HEME] AM COMPREHENSIVE METABOLIC PN,CMP [CHEM] AM - Assessment/Plan Last 24 Hours: My Active Orders 06/01/18 10:49 Chest 2V [CR] Stat TYPE AND SCREEN [BBK] Stat UA W/MICROSCOPIC [URIN] Stat Sodium Chloride 0.9% [Syrex Flush] 5 ml FLUSH Q8HR PRN Peripheral IV Insertion Adult [OM.PC] Routine 06/01/18 10:50 Peripheral IV Care [RC] . DIRECTED 06/01/18 11:15 RT Aerosol Therapy [RC] ASDIRECTED 06/01/18 11:27 Patient Status Manage Transfer [TRANSFER] Routine 06/01/18 11:29 Patient Status [ADT] Routine Oxygen Therapy [RC] PRN Up With Assistance [RC] ASDIRECTED VTE/DVT Education [RC] PER UNIT ROUTINE Vital Signs [RC] Q4H CULTURE SPUTUM + SMEAR [RM] Stat Sodium Chloride 0.9% [Syrex Flush] 5 ml FLUSH Q8HR PRN Peripheral IV Insertion Adult [OM.PC] Routine Resuscitation Status Routine 06/01/18 11:30 Pulse Oximetry [RC] PRN Albuterol/Ipratropium [DuoNeb 3.0-0.5 MG/3 ML] 3 ml NEB Q4H 06/01/18 11:31 Sequential Compression Device [OM.PC] Per Unit Routine 06/01/18 11:32 Peripheral IV Care [RC] . DIRECTED RT Aerosol Therapy [RC] ASDIRECTED 06/01/18 11:34 Transfuse Red Blood Cells [COMM] Stat 06/01/18 11:45 Azithromycin [Zithromax] 500 mg Sodium Chloride 0.9% [Normal Saline] 250 ml IV Q24H cefTRIAXone [Rocephin] 1 gm IVPUSH Q24H methylPREDNISolone Sod Succ [Solu-MEDROL] 80 mg IVPUSH Q8H 06/01/18 Lunch Regular Diet [DIET] 06/02/18 05:11 CBC WITH AUTO DIFF [HEME] AM COMPREHENSIVE METABOLIC PN,CMP [CHEM] AM Assessment:: 1. COPD exacerbation 2. Profound Anemia Plan: 1. Admit to medicine- Fadia Henson 2. Duoneb Q4 and PRN 3. Solumedrol 80mg Q8 IV 4. 2 units PRBC's with 20 lasix between each unit 5. supportive care- O2
[2018-06-01] MEDS ORDERED: Albuterol/Ipratropium 3.0-0.5 MG/3 ML Neb Soln NEB ONE (11:15)
[2018-06-01] MEDS ORDERED: methylPREDNISolone Sodium Succinate 125 MG/2 ML SDV IVPUSH ONE (11:15)
[2018-06-01] MEDS ORDERED: Albuterol/Ipratropium 3.0-0.5 MG/3 ML Neb Soln NEB SCH ×2 (11:30→15:45)
[2018-06-01] MEDS ORDERED: Furosemide 40 MG/4 ML VIAL IVPUSH ONE ×2 (11:35→11:36)
[2018-06-01] MEDS ORDERED: cefTRIAXone 1 GM Vial IVPUSH SCH (11:45)
[2018-06-01] MEDS ORDERED: Azithromycin 500 MG in Sodium Chloride 0.9% 250 ML IV SCH (11:45)
[2018-06-01] MEDS ORDERED: Sodium Chloride 0.9% 100 ML IV SCH (12:00)
[2018-06-01] MEDS ORDERED: Acetaminophen 325 MG Tab PO ONE (12:45)
[2018-06-01] MEDS ORDERED: diphenhydrAMINE 25 MG Cap PO ONE (12:45)
[2018-06-01] MEDS ORDERED: Sodium Chloride 0.9% 250 ML IV SCH (13:00)
[2018-06-01] MEDS: methylPREDNISolone Sodium Succinate 125 MG/2 ML SDV IVPUSH SCH ×2 (13:23→21:17)
[2018-06-01] MEDS: Albuterol/Ipratropium 3.0-0.5 MG/3 ML Neb Soln NEB SCH ×3 (14:45→23:07)
[2018-06-01] MEDS ORDERED: Hydrocortisone 2.5% Crm 30 GM Tube TOP PRN (15:41)
[2018-06-01] MEDS ORDERED: Albuterol HFA 18 Gm Inhaler INH PRN (15:41)
[2018-06-01] MEDS ORDERED: Albuterol/Ipratropium 3.0-0.5 MG/3 ML Neb Soln NEB PRN (15:41)
[2018-06-01] MEDS ORDERED: Ibuprofen 200 MG Tab PO PRN (15:41)
[2018-06-01] MEDS ORDERED: LORazepam 0.5 MG Tab PO PRN (15:45)
[2018-06-01] MEDS: Fluticasone/Salmeterol 250-50 MCG Inhalation Powder 14/Diskus INH SCH (21:12)
[2018-06-01] MEDS: Hydroxyurea 500 MG Cap PO SCH (21:13)
[2018-06-01] MEDS: LORazepam 0.5 MG Tab PO SCH (21:14)
[2018-06-02] MEDS: Albuterol/Ipratropium 3.0-0.5 MG/3 ML Neb Soln NEB SCH ×3 (03:00→11:03)
[2018-06-02] MEDS: methylPREDNISolone Sodium Succinate 125 MG/2 ML SDV IVPUSH SCH (03:35)
[2018-06-02] MEDS ORDERED: Pantoprazole 40 MG Tab.CR PO SCH (07:30)
[2018-06-02] MEDS: Fluticasone/Salmeterol 250-50 MCG Inhalation Powder 14/Diskus INH SCH (08:13)
[2018-06-02 08:27] LABS: CHLORIDE,CL 96 mmol/L (98-115); SODIUM,NA 135 mmol/L (136-145)
[2018-06-02] MEDS ORDERED: Allopurinol 100 MG Tab PO SCH (09:00)
[2018-06-02] MEDS ORDERED: Spironolactone 25 MG Tab PO SCH (09:00)
[2018-06-02] MEDS ORDERED: Furosemide 20 MG Tab PO SCH (09:00)
[2018-06-02] MEDS ORDERED: Aspirin 81 MG Tab.EC PO SCH (09:00)
[2018-06-02] MEDS ORDERED: Folic Acid 1 MG Tab PO SCH (09:00)
[2018-06-02] MEDS: LORazepam 0.5 MG Tab PO SCH (09:26)
[2018-06-02] MEDS: Hydroxyurea 500 MG Cap PO SCH (09:27)
--- NOTE | 2018-06-02 10:20 | PCM.DCSUM1 ---
Discharge Summary - Hospital Course Free Text/Narrative:: Justino is being discharged from a hospital stay being admitted on 06/01/18 and discharging 06/02/18. He as admitted with lab abnormalities including elevated WBC with low grade fever per [place] report as well as anemia, hemoglobin 6.5. In the ER he had some mild wheezing which improved with a duoneb and he was started on solumedrol 80 mg IV TID as well as azithromycin and rocephin. CXR was NAD. He has been afebrile. He received 2 units of PRBC's and hemoglobin is 8.5 today. WBC with steroids increased fo 20.4. He has stable low sodium at 135 and stable elevatedion of his alk phos at 335 and stable platelets at 607. UA was negative. He will be discharged home on azithromycin 250 mg PO daily x 4 days. No other medication changes. Lung sounds are good today, no additional prednisone. Will repeat labs in 2 weeks. Diagnosis: Stroke: No Modified Cherry Scale: No Symptoms at All Modified Elena Scale Score: 0 - Discharge Data Discharge Date: 06/02/18 Discharge Disposition: DC/Tfer to SNF 03 Condition: Good - Discharge Diagnosis/Problem(s) (1) Ascites due to alcoholic cirrhosis SNOMED Code(s): 2525421712664598 ICD Code: K70.31 - ALCOHOLIC CIRRHOSIS OF LIVER WITH ASCITES Status: Acute Current Visit: Yes (2) Anemia of chronic disease SNOMED Code(s): 208381368 ICD Code: D63.8 - ANEMIA IN OTHER CHRONIC DISEASES CLASSIFIED ELSEWHERE Status: Acute Current Visit: No (3) COPD (chronic obstructive pulmonary disease) SNOMED Code(s): 13457954 ICD Code: J44.9 - CHRONIC OBSTRUCTIVE PULMONARY DISEASE, UNSPECIFIED Status : Acute Current Visit: No Qualifiers: COPD type: COPD with acute exacerbation Qualified Code(s): J44.1 - Chronic obstructive pulmonary disease with (acute) exacerbation (4) Essential thrombocythemia SNOMED Code(s): 244251396 ICD Code: D47.3 - ESSENTIAL (HEMORRHAGIC) THROMBOCYTHEMIA Status: Acute Current Visit: No (5) Heart failure with preserved ejection fraction SNOMED Code(s): 06176248 ICD Code: I50.30 - UNSPECIFIED DIASTOLIC (CONGESTIVE) HEART FAILURE Status : Acute Current Visit: No (6) Neutrophilic leukocytosis SNOMED Code(s): 411787198, 264965918 ICD Code: D72.9 - DISORDER OF WHITE BLOOD CELLS, UNSPECIFIED Status: Acute Current Visit: No (7) COPD (chronic obstructive pulmonary disease) SNOMED Code(s): 90937158 ICD Code: J44.9 - CHRONIC OBSTRUCTIVE PULMONARY DISEASE, UNSPECIFIED Status : Chronic Current Visit: No - Patient Instructions Diet: Regular Diet as Tolerated Activity: As Tolerated Notify Provider of: Fever - Discharge Plan *PRESCRIPTION DRUG MONITORING PROGRAM REVIEWED*: Not Applicable *COPY OF PRESCRIPTION DRUG MONITORING REPORT IN PATIENT RONNIE: Not Applicable Prescriptions/Med Rec: Azithromycin [Zithromax] 250 mg PO DAILY #4 tab Home Medications: Home Meds Pantoprazole Sodium 40 mg PO ACBREAKFAST 02/25/15 [History] Albuterol [Proair HFA] 1 - 2 puff INH Q4H PRN 02/26/15 [History] Albuterol/Ipratropium [DuoNeb 3.0-0.5 MG/3 ML] 3 ml NEB Q4H PRN 09/05/16 [ History] Hydrocortisone [Proctozone-HC 2.5% Crm] 1 applic TOP QID PRN 11/08/16 [History] Hydroxyurea [Hydrea] 500 mg PO BID 11/05/17 [History] Fluticasone/Salmeterol [Advair 250-50 Diskus] 1 puff INH BID 03/20/18 [History] Allopurinol [Zyloprim] 300 mg PO DAILY 03/21/18 [History] Albuterol/Ipratropium [DuoNeb 3.0-0.5 MG/3 ML] 3 ml NEB Q4H neb 03/23/18 [Rx] Aspirin [Halfprin] 81 mg PO DAILY tab.ec 03/23/18 [Rx] Folic Acid 1 mg PO DAILY tablet 03/23/18 [Rx] Furosemide [Lasix] 60 mg PO DAILY tablet 03/23/18 [Rx] Spironolactone [Aldactone] 25 mg PO DAILY tablet 03/23/18 [Rx] Ibuprofen [Advil] 400 mg PO BID PRN 06/01/18 [History] LORazepam 0.5 mg PO BID 06/01/18 [History] Azithromycin [Zithromax] 250 mg PO DAILY #4 tab 06/02/18 [Rx] Forms: ED Department Discharge Referrals: Fadia Rajan MD [Primary Care Provider] - - General Info Date of Service: 06/02/18 - Review of Systems Systems Review Comment: Justino feels he is at his baseline and wants to go home. He isn't sure why he was admitted anyway as he felt fine. - Patient Data Vitals - Most Recent: Last Vital Signs Temp 97.1 F 06/02/18 06:17 Pulse 108 H 06/02/18 06:50 Resp 24 H 06/02/18 06:17 BP 115/62 06/02/18 06:17 Pulse Ox 94 L 06/02/18 06:50 Weight - Most Recent: 171 lb 3.2 oz I&O - Last 24 hours: Intake & Output 06/01/18 06/02/18 06/02/18 22:59 06:59 14:59 Intake Total 510 1025 Output Total 200 1550 Balance 310 -525 Lab Results - Last 24 hrs: Laboratory Results - last 24 hr 06/01/18 06/01/18 06/01/18 Range/Units 10:49 10:49 10:50 WBC (5.0-10.0) 10^3/uL RBC (4.50-6.00) 10^6/uL Hgb (13.0-17.0) g/dL Hct (40.0-52.0) % MCV (82.0-92.0) fL MCH (27.0-31.0) pg MCHC (32.0-36.0) g/dL RDW (11.5-14.5) % Plt Count (150-400) 10^3/uL MPV (7.4-10.4) fL Add Manual Diff Neutrophils % (Manual) (50-70) % Lymphocytes % (Manual) (20-40) % Monocytes % (Manual) (2-8) % Myelocytes % Immature Gran # Absolute Neutrophils Lymphocytes # (Manual) Monocytes # (Manual) Nucleated RBCs WBC Morphology Comment Platelet Estimate Poikilocytosis Anisocytosis Macrocytosis Tear Drop Cells Elliptocytes Schistocytes PT 11.8 H (8.9-11.4) SEC INR 1.2 H (0.9-1.1) APTT 28.6 (20.8-31.2) SEC Sodium (136-145) mmol/L Potassium (3.3-5.3) mmol/L Chloride (98-115) mmol/L Carbon Dioxide (21.0-32.0) mmol/L Anion Gap (5-15) mmol/L BUN (6-25) mg/dL Creatinine (0.51-1.17) mg/dL Est Cr Clr Drug Dosing mL/min Estimated GFR (MDRD) mL/min Glucose mg/dL Calcium (8.7-10.3) mg/dL Total Bilirubin (0.2-1.0) mg/dL AST (15-37) U/L ALT (12-78) U/L Alkaline Phosphatase (46-116) IU/L Total Protein (6.4-8.2) g/dL Albumin (3.00-4.80) g/dL Specimen Type Urinvoid Urine Color Yellow (YELLOW) Urine Appearance Clear (CLEAR) Urine pH 5.5 (5.0-9.0) Ur Specific Thorpe 1.010 (1.005-1.030) Urine Protein Trace H (NEGATIVE) mg/dL Urine Glucose (UA) Negative (NEGATIVE) mg/dL Urine Ketones Negative (NEGATIVE) mg/dL Urine Occult Blood Negative (NEGATIVE) Urine Nitrite Negative (NEGATIVE) Urine Bilirubin Negative (NEGATIVE) Urine Urobilinogen 0.2 (0.2-1.0) E.U./dL Ur Leukocyte Esterase Negative (NEGATIVE) Urine RBC Not seen /HPF Urine WBC 0-5 /HPF Ur Epithelial Cells Rare /LPF Urine Bacteria Not seen (NONE TO FEW) /HPF Blood Type O POSITIVE Gel Antibody Screen Negative Crossmatch See Detail 06/02/18 06/02/18 Range/Units 07:05 07:05 WBC 20.4 H (5.0-10.0) 10^3/uL RBC 2.58 L (4.50-6.00) 10^6/uL Hgb 8.5 L D (13.0-17.0) g/dL Hct 26.4 L (40.0-52.0) % MCV 102.3 H D (82.0-92.0) fL MCH 32.9 H (27.0-31.0) pg MCHC 32.2 (32.0-36.0) g/dL RDW 22.4 H (11.5-14.5) % Plt Count 607 H (150-400) 10^3/uL MPV 11.5 H (7.4-10.4) fL Add Manual Diff Yes Neutrophils % (Manual) 89 H (50-70) % Lymphocytes % (Manual) 7 L (20-40) % Monocytes % (Manual) 2 (2-8) % Myelocytes % 2 Immature Gran # 0.4080 Absolute Neutrophils 18.1560 Lymphocytes # (Manual) 1.4280 Monocytes # (Manual) 0.4080 Nucleated RBCs 2 WBC Morphology Comment See note Platelet Estimate Increased Poikilocytosis 1+ slight Anisocytosis 2+ moderate Macrocytosis 1+ slight Tear Drop Cells 1+ slight Elliptocytes 1+ slight Schistocytes 1+ slight PT (8.9-11.4) SEC INR (0.9-1.1) APTT (20.8-31.2) SEC Sodium 135 L (136-145) mmol/L Potassium 3.8 (3.3-5.3) mmol/L Chloride 96 L (98-115) mmol/L Carbon Dioxide 29.8 (21.0-32.0) mmol/L Anion Gap 13.0 (5-15) mmol/L BUN 17 (6-25) mg/dL Creatinine 0.84 (0.51-1.17) mg/dL Est Cr Clr Drug Dosing 83.00 mL/min Estimated GFR (MDRD) > 60 mL/min Glucose 143 mg/dL Calcium 7.8 L (8.7-10.3) mg/dL Total Bilirubin 0.8 (0.2-1.0) mg/dL AST 40 H (15-37) U/L ALT 14 (12-78) U/L Alkaline Phosphatase 335 H (46-116) IU/L Total Protein 6.0 L (6.4-8.2) g/dL Albumin 2.66 L (3.00-4.80) g/dL Specimen Type Urine Color (YELLOW) Urine Appearance (CLEAR) Urine pH (5.0-9.0) Ur Specific Thorpe (1.005-1.030) Urine Protein (NEGATIVE) mg/dL Urine Glucose (UA) (NEGATIVE) mg/dL Urine Ketones (NEGATIVE) mg/dL Urine Occult Blood (NEGATIVE) Urine Nitrite (NEGATIVE) Urine Bilirubin (NEGATIVE) Urine Urobilinogen (0.2-1.0) E.U./dL Ur Leukocyte Esterase (NEGATIVE) Urine RBC /HPF Urine WBC /HPF Ur Epithelial Cells /LPF Urine Bacteria (NONE TO FEW) /HPF Blood Type Gel Antibody Screen Crossmatch Med Orders - Current: Current Medications Albuterol (Ventolin Hfa) 0 gm INH Q4H PRN PRN Reason: Shortness of Breath Albuterol/Ipratropium (Duoneb 3.0-0.5 Mg/3 Ml) 3 ml NEB Q4HR [facility] Last Admin: 06/02/18 06:50 Dose: 3 ml Albuterol/Ipratropium (Duoneb 3.0-0.5 Mg/3 Ml) 3 ml NEB Q4H PRN PRN Reason: Shortness of Breath Allopurinol (Zyloprim) 300 mg PO DAILY [facility] Last Admin: 06/02/18 09:26 Dose: 300 mg Aspirin (Halfprin) 81 mg PO DAILY [facility] Last Admin: 06/02/18 09:26 Dose: 81 mg Ceftriaxone Sodium (Rocephin) 1 gm IVPUSH Q24H [facility] Last Admin: 06/01/18 11:47 Dose: 1 gm Folic Acid (Folic Acid) 1 mg PO DAILY [facility] Last Admin: 06/02/18 09:26 Dose: 1 mg Furosemide (Lasix) 60 mg PO DAILY [facility] Last Admin: 06/02/18 09:25 Dose: 60 mg Hydrocortisone (Proctozone-Hc 2.5% Crm) 0 gm TOP QID PRN PRN Reason: hemorrhoid pain Hydroxyurea (Hydrea) 500 mg PO BID [facility] Last Admin: 06/02/18 09:27 Dose: 500 mg Azithromycin 500 mg/ Sodium (Chloride) 250 mls @ 250 mls/hr IV Q24H [facility] Last Admin: 06/01/18 12:19 Dose: 250 mls/hr Sodium Chloride (Normal Saline) 100 mls @ 20 mls/hr IV DAILY@1200 [facility] Last Admin: 06/01/18 12:19 Dose: 20 mls/hr Ibuprofen (Motrin) 400 mg PO BID PRN PRN Reason: Pain Lorazepam (Ativan) 0.5 mg PO BID [facility] Last Admin: 06/02/18 09:26 Dose: 0.5 mg Lorazepam (Ativan) 0.5 mg PO BID PRN PRN Reason: Anxiety Last Admin: 06/01/18 17:28 Dose: 0.5 mg Methylprednisolone Sodium Succinate (Solu-Medrol) 80 mg IVPUSH Q8H [facility] Last Admin: 06/02/18 03:35 Dose: 80 mg Pantoprazole Sodium (Protonix) 40 mg PO ACBREAKFAST [facility] Last Admin: 06/02/18 06:38 Dose: 40 mg Fluticasone/Salmeterol (Advair Diskus 250-50) 1 puff INH BID [facility] Last Admin: 06/02/18 08:13 Dose: 1 puff Spironolactone (Aldactone) 25 mg PO DAILY [facility] Last Admin: 06/02/18 09:26 Dose: 25 mg Discontinued Medications Acetaminophen (Tylenol) 650 mg PO NOW ONE Stop: 06/01/18 12:46 Last Admin: 06/01/18 13:59 Dose: 650 mg Albuterol/Ipratropium (Duoneb 3.0-0.5 Mg/3 Ml) 3 ml NEB ONETIME ONE Stop: 06/01/18 11:16 Last Admin: 06/01/18 11:25 Dose: 3 ml Albuterol/Ipratropium (Duoneb 3.0-0.5 Mg/3 Ml) 3 ml NEB Q4H [facility] Last Admin: 06/01/18 12:42 Dose: Not Given Albuterol/Ipratropium (Duoneb 3.0-0.5 Mg/3 Ml) 3 ml NEB Q4H [facility] Last Admin: 06/01/18 17:50 Dose: Not Given Diphenhydramine HCl (Benadryl) 25 mg PO ONETIME ONE Stop: 06/01/18 12:46 Last Admin: 06/01/18 13:59 Dose: 25 mg Furosemide (Lasix) 20 mg IVPUSH NOW ONE Stop: 06/01/18 11:36 Last Admin: 06/01/18 18:47 Dose: 20 mg Furosemide (Lasix) 20 mg IVPUSH NOW ONE Stop: 06/01/18 11:37 Last Admin: 06/02/18 03:27 Dose: 20 mg Sodium Chloride (Normal Saline) 250 mls @ 75 mls/hr IV ASDIRECTED [facility] Stop: 06/01/18 18:00 Methylprednisolone Sodium Succinate (Solu-Medrol) 125 mg IVPUSH ONETIME ONE Stop: 06/01/18 11:16 Last Admin: 06/01/18 11:25 Dose: 125 mg Sodium Chloride (Syrex Flush) 5 ml FLUSH Q8HR PRN PRN Reason: Keep Vein Open - Exam Quality Assessment: Reports: Supplemental Oxygen General: Reports: Alert, Oriented, Cooperative, No Acute Distress Lungs: Reports: Normal Respiratory Effort, Decreased Breath Sounds Cardiovascular: Reports: Regular Rate, Regular Rhythm, Murmurs (2/6 systolic murmur) GI/Abdominal Exam: Normal Bowel Sounds Extremities: Pedal Edema
[2018-06-02 10:53] VITALS: BP 112/61
== END 2018-06-02 11:40 | DRG 191 ==
LOC: KA.ED 10:14 → KA.MS 11:27
PROVIDERS: ADMIT Physician Assistant Medical; ATTEND Internal Medicine
PROC: 30233N1 Transfusion of Nonautologous Red Blood Cells into Peripheral Vein, Percutaneous Approach (ICD-10-PCS; principal; 2018-06-01)
DX: J44.1 Chronic obstructive pulmonary disease with (acute) exacerbation (principal); I50.30 Unspecified diastolic (congestive) heart failure; D64.9 Anemia, unspecified; K70.31 Alcoholic cirrhosis of liver with ascites; I10 Essential (primary) hypertension; D63.8 Anemia in other chronic diseases classified elsewhere; D47.3 Essential (hemorrhagic) thrombocythemia; I11.0 Hypertensive heart disease with heart failure; D69.6 Thrombocytopenia, unspecified; H54.7 Unspecified visual loss; M19.90 Unspecified osteoarthritis, unspecified site; R51 Headache; E66.9 Obesity, unspecified; Z87.11 Personal history of peptic ulcer disease; R09.81 Nasal congestion; R05 Cough; R06.02 Shortness of breath; Z99.81 Dependence on supplemental oxygen; Z79.82 Long term (current) use of aspirin; Z79.899 Other long term (current) drug therapy; Z68.26 Body mass index [BMI] 26.0-26.9, adult
CPT/HCPCS: 36415; 36430; 71046; 80053; 81001; 85025; 85610; 85730; 86850; 86900; 86901; 86920; 86922; 94640; 94640-76; 96374; 96375; 99285; A9270-GY; J0456; J0696; J1940; J2930; J7050; J7620-GY; P9016